=== PATIENT | female | born 1965 | race Caucasian/White ===

== ENCOUNTER 2019-04-24 09:09 | Emergency (ER) | payer OTHER, SELFPAY ==
[2019-04-24 09:10] VITALS: BP 132/81; PULSE 92; RESP 18; TEMP 36.6; O2SAT 98; BMI 18.4
[2019-04-24 09:32] LABS: UTC Influenza A Antigen Negative (Negative); UTC Influenza B Antigen Negative (Negative)
--- NOTE | 2019-04-24 09:37 | HMH.EDUTC ---
[facility] [place] Disposition Clinical Impression: Bronchitis Disposition: Home, Self-Care Condition on Discharge: Good Instructions: Acute Bronchitis, Acute Bronchitis (Alternative Therapy), DI for Acute Bronchitis, Sore Throat Additional Instructions: ? Start antibiotic today. Be sure to complete entire prescription even if feeling better ? Monitor temp. Tylenol every 4 hours as needed and / or ibuprofen every 6 hours as needed ( As long as your primary care physician has told you that it ok to take both. For fever/aches/pains ER if no less than 101 despite Tylenol or Motrin ? Humidifier/vaporizer or hot steamy shower ? Inhaler every 4-6 hours as needed like we discussed. If unsure how to use it, ask pharmacist to demonstrate how. Should help open airways and improve cough, wheezing, and shortness of breath ? Mucinex during the day for your cough and cough suppressant only at night. Be sure to drink lots of water. Insurance may not cover a prescriptions for mucinex. Might be cheaper to get 400mg tablets and take 2 tablet in the morning, mid-day and evening with lots of water. *Start steroid today. Helps with inflammation therefore, cough and wheezing. Follow directions on the package. Reviewed side effects. Patient reports taking them before. Follow up IMMEDIATELY for new or worsening of symptoms OR no noticeable improvement over the next 48-72 hours. 911 immediately for any life threatening symptoms such as chest pain or difficulty breathing Prescriptions: Albuterol Sulfate [Albuterol HFA Inhaler] 1 - 2 puffs IH Q4-6H PRN #1 inh PRN Reason: Shortness Of Breath Or Wheezing Transmission Status: Pending to [facility] methylPREDNISolone [Medrol 4mg tab] 4 mg PO DIRECTED #21 tab Transmission Status: Pending to [facility] Azithromycin [Z-Marcin 250mg Tab*] 250 mg PO UD DOSE PK #6 tab Transmission Status: Pending to [facility] Referrals: Nasir Ernandez [Primary Care Provider] - As needed Time of Disposition: 09:44 Medical Decision Making - Frankie Inquiry Pt receiving controlled substance: No Frankie was queried for this patient: No Vital Signs: 04/24/19 09:10 Temperature 97.8 F Temperature Source Oral Pulse Rate [Right] 92 H Respiratory Rate 18 Blood Pressure [Right Arm] 132/81 Blood Pressure Mean [Right Arm] 98 02 Sat by Pulse Oximetry 98 - Lab Data Lab results reviewed: Yes: I reviewed the patient's lab results. Lab Results 04/24/19 09:29: Influenza Type A Ag Negative, Influenza Type B Ag Negative [facility] [place] HPI - General Stated complaint: Flu like symptoms Time Seen by Provider: 04/24/19 09:37 Mode of Arrival: Ambulatory Limitations: No Limitations Description of Symptoms (Recalled from Triage Doc. by RN): C/O cough, chest congestion, body aches x5 days. HEENT Symptoms (Recalled from RN notes): Yes Resp Symptoms (Recalled from RN notes): Yes Skin Symptoms (Recalled from RN notes): No MS Symptoms (Recalled from RN notes): No Functional Status (Recalled from RN notes): na - History of Present Illness Provider Complaint: Patient states that she has been having flu like symptoms States that she has been having cough, congestion, sore throat and body aches. States that she has continued to get worse and thinks she had the flu - Related Data Previous Rx's Medication Instructions Recorded Ibuprofen [Ibuprofen 600mg 600 mg PO Q6HP PRN #30 tab 08/26/18 Tablet] Albuterol Sulfate [Albuterol HFA 1 - 2 puffs IH Q4-6H PRN #1 inh 04/24/19 Inhaler] Azithromycin [Z-Marcin 250mg Tab*] 250 mg PO UD DOSE PK #6 tab 04/24/19 methylPREDNISolone [Medrol 4mg 4 mg PO DIRECTED #21 tab 04/24/19 tab] Allergies Allergy/AdvReac Type Severity Reaction Status Date / Time No Known Allergies Allergy Verified 08/26/18 19:08 - Worker's Comp Is this a Worker's Comp case?: No [facility] History - Hepatitis A Screen Drug use history?: No High risk sexual behaviors?: No Histo
[2019-04-24 09:54] VITALS: BP 120/78; PULSE 87; RESP 18; TEMP 36.8; O2SAT 98
== END 2019-04-24 09:54 | disposition home or self-care (01) ==
PROVIDERS: Emergency Provider Nurse Practitioner; PCP Family Medicine
DX: J40 Bronchitis, not specified as acute or chronic (principal); Z90.49 Acquired absence of other specified parts of digestive tract; Z72.0 Tobacco use
CPT/HCPCS: 87804; 99201

== ENCOUNTER → 2021-06-03 10:35 | Outpatient (CLI) | payer MEDICAID, SELFPAY ==
[2021-06-04 10:46] LABS: Covid-19 Nasal PCR Sendout Lex POSITIVE
== END ==
PROVIDERS: Visit Provider Nurse Practitioner
DX: U07.1 COVID-19 (principal)
CPT/HCPCS: C9803; U0004; U0005

== ENCOUNTER 2021-06-08 15:45 | Emergency (ER) | payer MEDICAID, SELFPAY ==
[2021-06-08 15:47] VITALS: BP 185/99; PULSE 78; RESP 16; TEMP 36.5; O2SAT 98; BMI 19.3
--- NOTE | 2021-06-08 16:01 | XR_ITS ---
PROCEDURE INFORMATION: Exam: XR Chest Exam date and time: 06/08/2021 4:01 PM Age: 56 years old Clinical indication: Smoker's cough; Additional info: Cough - covid + 06/03/2021 TECHNIQUE: Imaging protocol: XR of the chest. Views: 2 views. COMPARISON: No relevant prior studies available. FINDINGS: Lungs: The lungs are hyperinflated, consistent with underlying small airways disease. No focal pneumonia or pneumothorax. Pleural spaces: See Lungs finding. Heart/Mediastinum: Unremarkable. No cardiomegaly. Bones/joints: Unremarkable. IMPRESSION: 1. The lungs are hyperinflated, consistent with underlying small airways disease. 2. No focal pneumonia or pneumothorax.
--- NOTE | 2021-06-08 16:22 | HMH.EDUTC ---
[facility] [place] Clinical Impression: COVID-19 Disposition: Home, Self-Care Condition on Discharge: Good Instructions: How to Use a Metered-Dose Inhaler, Chronic Obstructive Pulmonary Disease, DI for Chronic Obstructive Pulmonary Disease, How to Quit Tobacco Products, DI for COVID-19 (Suspected or Confirmed ), Preventing the Spread of Coronavirus Discharge Instructions Additional Instructions: Drink plenty of fluids. Take tylenol or ibuprofen for pain or fever. Take the medications as directed. Follow up with your regular doctor. GO TO THE ER FOR ANY WORSENING SYMPTOMS Quarantine until you know the results of your covid-19 test. Notify your school or workplace of your results and follow their instructions regarding return to work/school. The cough medication (promethazine dm) will make you drowsy, so don't drive or operate heavy machinery after taking it. Prescriptions: Albuterol Sulfate [Albuterol Sulfate Hfa] 2 puffs IH Q6HP PRN 30 Days #1 each PRN Reason: Shortness Of Breath Transmission Status: Received by [facility] Promethazine/Dextromethorphan [Promethazine-Dm Syrup] 5 ml PO Q6HP PRN #240 ml PRN Reason: Cough Transmission Status: Received by [facility] dexAMETHasone [Decadron] 6 mg PO DAILY 6 Days #6 tab Transmission Status: Received by [facility] guaiFENesin [Mucinex 600mg tablet] 1 - 2 tab PO BIDP PRN #30 tab PRN Reason: Congestion Transmission Status: Received by [facility] Azithromycin [Z-Marcin 250mg Tab*] 250 mg PO UD DOSE PK #6 tab Transmission Status: Received by [facility] Referrals: Provider,Referral, [Primary Care Provider] - Time of Disposition: 17:05 Medical Decision Making - Medical Records Medical records reviewed: No: I reviewed the patient's medical records. - Frankie Inquiry Pt receiving controlled substance: No Vital Signs: 06/08/21 15:47 06/08/21 17:08 Temperature 97.7 F 97.7 F Temperature Source Oral Pulse Rate 78 Pulse Rate [Radial] 78 Respiratory Rate 16 16 Blood Pressure 185/99 H Blood Pressure [Right Arm] 185/99 H Blood Pressure Mean [Right Arm] 127 Blood Pressure Position [Right Arm] Sitting 02 Sat by Pulse Oximetry 98 Oxygen Delivery Method Room Air - Radiology Data #1 Image(s): Chest Image Reviewed: Yes I reviewed the patient's radiology image, Yes I have reviewed radiologist's interpretation Preliminary Findings: Normal/NAD, No Infiltrates Seen PROCEDURE INFORMATION: Exam: XR Chest Exam date and time: 06/08/2021 4:01 PM Age: 56 years old Clinical indication: Smoker's cough; Additional info: Cough - covid + 06/03/2021 TECHNIQUE: Imaging protocol: XR of the chest. Views: 2 views. COMPARISON: No relevant prior studies available. FINDINGS: Lungs: The lungs are hyperinflated, consistent with underlying small airways disease. No focal pneumonia or pneumothorax. Pleural spaces: See Lungs finding. Heart/Mediastinum: Unremarkable. No cardiomegaly. Bones/joints: Unremarkable. IMPRESSION: 1. The lungs are hyperinflated, consistent with underlying small airways disease. 2. No focal pneumonia or pneumothorax. [facility] [place] - General Stated complaint: covid+. weakness, chest congestion Time Seen by Provider: 06/08/21 16:22 Mode of Arrival: Ambulatory Source of Information: Patient Limitations: No Limitations Description of Symptoms (Recalled from Triage Doc. by RN): PT STATES SHE TESTED + FOR COVID THURSDAY, TODAY TOOK SOME MUCINEX FOR CONGESTION APPROX 2PM NOW FEELS SHAKEY AND HEART RACING. PT DENIES ANY CHEST PAIN, SOB, NAUSEA, VOMITING, FEVER, CHILLS. RADIAL PULSE STRONG REG AT 78. - History of Present Illness Provider Complaint: She has felt bad for the past 5 days. She has tested positive for covid-19 already. She states that she has been doing fine, but today she has had dejuan
[2021-06-08 17:08] VITALS: BP 185/99; PULSE 78; RESP 16; TEMP 36.5
== END 2021-06-08 17:27 | disposition home or self-care (01) ==
LOC: ER 15:57 → UTC 15:59
PROVIDERS: Emergency Provider Nurse Practitioner Family
DX: U07.1 COVID-19 (principal); R05.1 Acute cough; F17.210 Nicotine dependence, cigarettes, uncomplicated
CPT/HCPCS: 71046; 99202; G0463

== ENCOUNTER 2021-06-15 11:36 | Emergency (ER) | payer MEDICAID, SELFPAY ==
[2021-06-15 11:40] VITALS: BP 138/86; PULSE 78; RESP 18; TEMP 36.6; O2SAT 98; BMI 21.4
--- NOTE | 2021-06-15 11:44 | XR_ITS ---
PROCEDURE INFORMATION: Exam: XR Left Wrist Exam date and time: 06/15/2021 11:44 AM Age: 56 years old Clinical indication: Wrist; Left; Patient HX: Pain and swelling TECHNIQUE: Imaging protocol: XR Left wrist. Views: 3 or more views. COMPARISON: No relevant prior studies available. FINDINGS: Bones/joints: Moderate osteoarthritic changes of the thumb base and STT complex. There is a cyst/cystic lesion within the scaphoid bone measuring approximately 8 x 5 mm. Carpal alignment maintained. No evidence of an acute fracture or dislocation. Soft tissues: Soft tissue swelling. IMPRESSION: 1. 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 2. There is a cyst/cystic lesion within the scaphoid bone measuring approximately 8 x 5 mm. 3. No evidence of an acute fracture or dislocation.
--- NOTE | 2021-06-15 12:11 | HMH.EDUTC ---
[facility] [place] Disposition Clinical Impression: Cyst Gout Qualifiers: Gout site: wrist Gout etiology: unspecified cause Chronicity: acute Laterality: left Qualified Code(s): M10.9 - Gout, unspecified Disposition: Home, Self-Care Condition on Discharge: Good Instructions: DI for Gout, Ganglion Cyst Additional Instructions: rest Ice with cold pack for 20 minutes remove may repeat for comfort every hour aurea wrap for support and swelling no less in the shower. Be sure not too tight but not to lose either Elevate with arm above your heart as much as possible to help reduce swelling and therefore pain Ibuprofen every 6 hours as needed for pain or inflammation. If needs something more you can take Tylenol every 4 hours as needed as long as her primary care has told he was okayed for you to take both. Follow-up immediately if new or worsening symptoms or no noticeable improvement over the next 3-5 days. call ortho Prescriptions: predniSONE [Prednisone 20mg Tab] 20 mg PO BID #10 tab Transmission Status: Pending to [facility] Referrals: Provider,Referral, [Primary Care Provider] - Time of Disposition: 12:36 Medical Decision Making - Frankie Inquiry Pt receiving controlled substance: No Vital Signs: 06/15/21 11:40 Temperature 97.8 F Temperature Source Oral Pulse Rate [Right Brachial] 78 Respiratory Rate 18 Blood Pressure [Right Arm] 138/86 Blood Pressure Mean [Right Arm] 103 Blood Pressure Source [Right Arm] Automatic Cuff Blood Pressure Position [Right Arm] Sitting 02 Sat by Pulse Oximetry 98 Oxygen Delivery Method Room Air Orders (Tests/Meds): ORDERS Category Date Time Status Uric Acid Stat Lab 06/15/21 12:15 Ordered [facility] [place] HPI - General Chief complaint: Urgent [facility] Stated complaint: left hand/wrist pain, no accident Time Seen by Provider: 06/15/21 12:16 Mode of Arrival: Ambulatory Source of Information: Patient Limitations: No Limitations Description of Symptoms (Recalled from Triage Doc. by RN): PATIENT C/O LEFT WRIST PAIN AND SWELLING SINCE THIS MORNING. NO KNOWN INJURY HEENT Symptoms (Recalled from RN notes): No Resp Symptoms (Recalled from RN notes): No Skin Symptoms (Recalled from RN notes): No MS Symptoms (Recalled from RN notes): Yes Functional Status (Recalled from RN notes): WNL - History of Present Illness Provider Complaint: 56 yr old female presents for left wrist and hand pain with swelling. pt states no injury. pt states she woke up this am with swelling and pain. - Related Data Previous Rx's Medication Instructions Recorded predniSONE [Prednisone 20mg 20 mg PO BID #10 tab 06/15/21 Tab] Allergies Allergy/AdvReac Type Severity Reaction Status Date / Time No Known Allergies Allergy Verified 08/26/18 19:08 - Worker's Comp Is this a Worker's Comp case?: No [facility] History - Hepatitis A Screen Drug use history?: No High risk sexual behaviors?: No History of sexually transmitted infection?: No Currently employed?: No Childcare worker?: No Do you have indoor plumbing?: Yes Do you have electricity?: Yes Attestation statement:: This patient has been screened for Hepatitis A risk factors. I have reviewed the patient's past medical history: Yes Other Surgeries: Yes: Appendectomy Comment: Multiple Pancreatic Surgeries - Social History Smoking Status: Current every day smoker Tobacco Type: cigarettes # Packs/Day (cigarettes): 40 Alcohol Intake: never Substance Use Type: denies use Occupational Status: other Family Hx:: Heart Attack, Hypertension ROS Obtained: Yes Systems reviewed as appropriate & no additional complaints - Constitutional Constitutional: Reports system reviewed and no additional complaints, except as docu, Denies fever(s) - Eyes Eyes: Reports system reviewed and no additional complaints, except as docu, Denies dry eyes - ENT Ears, Nose, Mouth, and Throat: Reports system reviewed and no additional complaints,
[2021-06-15 12:41] VITALS: BP 138/86; PULSE 78; RESP 18; TEMP 36.6; O2SAT 98
== END 2021-06-15 12:47 | disposition home or self-care (01) ==
PROVIDERS: Emergency Provider Nurse Practitioner Family
DX: M10.042 Idiopathic gout, left hand (principal)
CPT/HCPCS: 73110; 84550; 99202; 99212; 99213; G0463

== ENCOUNTER 2021-07-11 10:59 | Outpatient (RCR) | payer MEDICAID, SELFPAY | END 2021-07-11 11:35 | disposition home or self-care (01) | LOC: OT 10:59 | PROVIDERS: Visit Provider Orthopaedic Surgery | DX: M18.12 Unilateral primary osteoarthritis of first carpometacarpal joint, left hand (principal) ==

== ENCOUNTER 2021-08-15 08:33 | Observation (INO) | payer MEDICAID, SELFPAY ==
[2021-08-15] VITALS (17 sets, daily range): BP systolic 155–219; BP diastolic 81–108; PULSE 41–85; RESP 16–20; TEMP 35.4–36.8; O2SAT 93–100; BMI 18.0; BMI 16.7
--- NOTE | 2021-08-15 08:35 | PC.NURSE ---
patient ambulatory to restroom without complications; patient is holding her abdomen while walking
--- NOTE | 2021-08-15 08:41 | PC.NURSE ---
patient back from restroom without complications; she was unable to void at this time
--- NOTE | 2021-08-15 08:41 | PC.NURSE ---
QING SOTO at BS; DARREL Pang at BS
--- NOTE | 2021-08-15 08:43 | HMH.EDGENADL ---
ED Disposition Clinical Impression: Splenic infarct Disposition: Admitted as Observation Condition on Discharge: Good Referrals: Provider,Referral, [Primary Care Provider] - - Critical Care Critical Care Time: No Attestation: On 08/15/21, the high probability of a clinically significant, sudden or life threatening deterioration of the following system(s) required my full and direct attention, intervention and personal management. The time I documented below is in addition to time spent performing reported procedures but includes the following listed in this critical care notation. Medical Decision Making - Medical Records Medical records reviewed: Yes: I reviewed the patient's medical records. - Frankie Inquiry Pt receiving controlled substance: No Vital Signs: 08/15/21 08:46 08/15/21 09:00 08/15/21 09:33 Temperature 98.2 F Temperature Source Oral Pulse Rate 61 60 Pulse Rate [Left Radial] 65 Respiratory Rate 18 Blood Pressure 219/99 H 177/106 H Blood Pressure [Right Arm] 162/108 H Blood Pressure Mean [Right Arm] 126 Blood Pressure Source Automatic Cuff Automatic Cuff Blood Pressure Position Sitting Sitting 02 Sat by Pulse Oximetry 98 98 93 L Oxygen Delivery Method Room Air Room Air Room Air 08/15/21 10:00 08/15/21 11:00 08/15/21 11:37 Temperature Temperature Source Pulse Rate 55 L 55 L 58 L Pulse Rate [Left Radial] Respiratory Rate Blood Pressure 165/87 H 171/86 H 184/83 H Blood Pressure [Right Arm] Blood Pressure Mean [Right Arm] Blood Pressure Source Automatic Cuff Automatic Cuff Automatic Cuff Blood Pressure Position Sitting Sitting Sitting 02 Sat by Pulse Oximetry 94 L 96 99 Oxygen Delivery Method Room Air Room Air Room Air - Lab Data Lab Results 08/15/21 09:22: WBC 8.6, RBC 4.89, Hgb 15.3, Hct 48.1 H, MCV 98.2, MCH 31.3 H, MCHC 31.9, RDW 13.6, Plt Count 327, MPV 9.0, Neut % (Auto) 71.7, Lymph % (Auto) 19.4, Crenshaw % (Auto) 4.9, Eos % (Auto) 1.4, Baso % (Auto) 2.8 H, Neut # (Auto) 6.1, Lymph # (Auto) 1.7, Crenshaw # (Auto) 0.4, Eos # (Auto) 0.1, Baso # (Auto) 0.2 08/15/21 09:22: Sodium 135 L, Potassium 3.8, Chloride 103, Carbon Dioxide 28, Anion Gap 7.8, BUN 12, Creatinine 0.70, Estimated Creat Clear 73, Estimated GFR 86, Est GFR ( Amer) 104, Glucose 94, Calcium 8.2 L, Total Bilirubin 0.7, AST 24, ALT 13, Alkaline Phosphatase 94, Total Protein 6.5, Albumin 4.0, Globulin 2.5, Albumin/Globulin Ratio 1.6 08/15/21 09:22: Lipase 108 08/15/21 09:22: PT 10.4, INR 0.91, APTT 25.9 08/15/21 09:22: Troponin I < 0.01 Result diagrams: 08/15/21 09:22 08/15/21 09:22 Orders (Tests/Meds): ED MEDICATIONS Generic Name Dose Route Start Last Admin Trade Name Freq PRN Reason Stop Dose Admin Acetaminophen 650 mg 08/15/21 12:15 Acetaminophen 325mg Tab PO 09/14/21 12:14 Q4HP PRN Fever or Mild Pain Lactated Ringer's 1,000 mls @ 125 mls/hr 08/15/21 11:45 08/15/21 12:01 Lactated Ringer's 1000 Ml Bag IV 09/14/21 11:44 125 mls/hr .Q8H CONNOR Administration Morphine Sulfate 4 mg 08/15/21 12:15 Morphine 4mg/Ml Syringe IV 09/14/21 12:14 Q4HP PRN Severe Pain Ondansetron HCl 4 mg 08/15/21 12:15 Ondansetron 4mg/2ml Vial IV 09/14/21 12:14 Q8HP PRN Nausea Discontinued Medications Generic Name Dose Route Start Last Admin Trade Name Freq PRN Reason Stop Dose Admin Hydromorphone HCl 0.5 mg 08/15/21 08:39 Hydromorphone 2mg/Ml Syringe IV 08/15/21 08:40 ONCE ONE Lactated Ringer's 1,000 mls @ 999 mls/hr 08/15/21 08:45 08/15/21 09:27 Lactated Ringer's 1000 Ml Bag IV 08/15/21 09:45 999 mls/hr .Q1H1M CONNOR Administration Iopamidol 75 ml 08/15/21 10:38 08/15/21 10:39 Iopamidol-370 (76%);100ml Bottle IV 08/15/21 10:39 75 ml ONCE ONE Administration Morphine Sulfate 4 mg 08/15/21 08:44 08/15/21 09:27 Morphine 4mg/Ml Syringe IV 08/15/21 08:45 4 mg ONCE ONE Administration Morphin
--- NOTE | 2021-08-15 09:02 | PC.NURSE ---
Call light within reach, patient given a blanket and has no other needs at this time
[2021-08-15 09:41] LABS: Chloride 103 mmol/L (98-107)
[2021-08-15 09:42] LABS: Potassium 3.8 mmoL/L (3.5-5.1); Sodium 135 mmol/L (136-145)
[2021-08-15 09:44] LABS: Alanine Aminotransferase 13 U/L (12-78); Albumin/Globulin Ratio 1.6 (1.1-1.8); Alkaline Phosphatase 94 U/L (38-126); Anion Gap 7.8 mEq/L (5-15); Aspartate Amino Transferase 24 U/L (14-36); Basophils # 0.2 K/mm3 (0-0.2); Basophils % 2.8 % (0.1-2.0); Bilirubin,Total 0.7 mg/dl (0.2-1.3); Blood Urea Nitrogen 12 mg/dl (7-17); Carbon Dioxide 28 mmol/L (22.0-30.0); Creatinine Clearance Estimated 73 mL/min (50-200); Eosinophils # 0.1 K/mm3 (0.0-0.4); Eosinophils % 1.4 % (0.1-12.0); Estimated Glomerular Filt Rate 86 ml/min (>60); GFR (African American) 104 ML/MIN (>60); Globulin 2.5 g/dL (1.3-3.2); Hematocrit 48.1 % (37.0-47.0); Hemoglobin 15.3 g/dL (12.2-16.2); Lymphocytes # 1.7 K/mm3 (0.7-4.5); Lymphocytes % 19.4 % (10-50); Mean Corpuscular HGB Conc 31.9 g/dL (31.8-35.4); Mean Corpuscular Hemoglobin 31.3 pg (27.0-31.2); Mean Corpuscular Volume 98.2 fl (81-99); Monocytes # 0.4 K/mm3 (0.1-1.0); Monocytes % 4.9 % (1.7-9.3); Neutrophils # 6.1 K/mm3 (1.8-7.8); Neutrophils % 71.7 % (37.0-80.0); Platelet Count 327 K/mm3 (142-424); Red Blood Count 4.89 M/mm3 (4.20-5.40); Red Cell Distribution Width 13.6 % (11.5-17.5); Total Protein,Serum 6.5 g/dl (6.3-8.2); White Blood Count 8.6 K/mm3 (4.8-10.8)
[2021-08-15 09:45] LABS: Calcium 8.2 mg/dl (8.4-10.2); Glucose 94 mg/dl (74-100); Lipase 108 U/L (23-300)
--- NOTE | 2021-08-15 09:49 | CT_ITS ---
FINAL REPORT CLINICAL HISTORY: epigastric abd pain, h/o pancreatitis FINDINGS: CT OF THE ABDOMEN AND PELVIS WITH CONTRAST Axial CT images of the abdomen and pelvis were obtained after the administration of intravenous contrast. Coronal reformatted images were also obtained and reviewed.This study was performed with techniques to keep radiation doses as low as reasonably achievable (ALARA). Individualized dose reduction techniques using automated exposure control or adjustment of mA and/or kV according to the patient's size were employed. Abdomen: There is scarring in the lung bases. The heart is normal in size. The liver has an unremarkable appearance, without evidence of mass or biliary ductal dilatation. There is mild nonspecific gallbladder wall thickening. There are multiple peripheral areas of low attenuation in the spleen that do not have the typical appearance of contrast mixing in the recent 4 multiple infarcts. No adrenal mass is present. There is mild pancreatic duct dilatation up to 4 mm which is nonspecific. The kidneys are normal, without evidence of mass or hydronephrosis. The aorta is normal in caliber. There is no free fluid or adenopathy. No mass or abnormal fluid collection is seen. Pelvis: The appendix is not identified. The urinary bladder is unremarkable. No inflammatory process is seen. There is no evidence of mass or adenopathy. There is no evidence of bowel obstruction. There is a prominent left pelvic vein of uncertain significance. IMPRESSION: Peripheral low attenuation areas in the spleen worrisome for multiple infarcts. Follow-up with delayed imaging through the spleen may be helpful. Reviewed, Interpreted and Dictated by Geo Gutierrez III, MD Transcribed by Feroz Addison Authenticated by Geo Gutierrez III, MD on 08/15/2021 11:15:27 AM [facility]
--- NOTE | 2021-08-15 11:05 | PC.NURSE ---
Waiting on CT results; patient is resting with no needs at this time
--- NOTE | 2021-08-15 11:29 | XR_ITS ---
FINAL REPORT CLINICAL HISTORY: epigastric pain COMPARISON: 06/08/2021 FINDINGS: A single view of the chest was obtained. The heart is normal in size. The mediastinum is unremarkable. There is mild scarring/fibrosis. There is no active disease. There is no pleural effusion. There is no pneumothorax. There is no acute osseous abnormality. IMPRESSION: No acute cardiopulmonary process. Reviewed, Interpreted and Dictated by Geo Gutierrez III, MD Transcribed by Monet Garcia Authenticated by Geo Gutierrez III, MD on 08/15/2021 01:01:02 PM [facility]
--- NOTE | 2021-08-15 11:35 | ECG_ITS ---
APPROVED REPORT Exam: Resting ECG HR:46 bpm ECG Measurements Heart Rate 46 AXES VT 140 P 84 QRSd 93 QRS 87 QT 425 T 85 QTc 384 Conclusion ELECTRONIC ATRIAL PACEMAKER POSSIBLE RIGHT VENTRICULAR CONDUCTION DELAY [RSR (QR) IN V1/V2] ABNORMAL RHYTHM ECG UNCONFIRMED REPORT Electronically signed by : Barrett De Leon MD 08/17/2021 12:21:00
[2021-08-15 12:00] LABS: Activated Partial Thrombo Time 25.9 seconds (22.8-30.6); INR 0.91 (0.9-1.1); Prothrombin Time 10.4 seconds (10.1-12.5)
--- NOTE | 2021-08-15 12:01 | INFXCTL.NOTE ---
QING SOTO on phone with Dr. Blackman
[2021-08-15 12:07] LABS: Troponin I < 0.01 ng/ml (0.00-0.034)
--- NOTE | 2021-08-15 12:11 | SUR.OPER ---
ED MD at for update on POC
--- NOTE | 2021-08-15 12:14 | PC.NURSE ---
ED speaking with Dr Wang
[2021-08-15 12:24] LABS: Amylase 100 U/L (30-110)
--- NOTE | 2021-08-15 12:30 | HMH.PHAINT ---
MEDICATION RECONCILIATION COMPLETED ON PATIENT USING EXTERNAL FILL HISTORY FROM PHARMACY. -SHANTEL ROQUE, AMYD
[2021-08-15 12:40] LABS: Lactic Acid 0.9 mmol/L (0.7-2.1)
--- NOTE | 2021-08-15 12:40 | PC.NURSE ---
1234 bed assignment requested. room 211 all staff notified
--- NOTE | 2021-08-15 12:42 | HMH.HP ---
*Admission Date: 08/15/21 <Arti Gonzalez 08/15/21 12:48> *Chief complaint: epigastric abdominal pain <Chino Gonzaleza 08/15/21 12:48> *History of present illness: Ms. Anderson is a 56-year-old female who is relatively healthy other than an episode of pancreatitis approximately 16 years ago. She began having severe epigastric pain last night and presented to the emergency room for evaluation. Her abdominal and pelvic CT showed peripheral low-attenuation areas in the spleen worrisome for multiple infarcts. She will be admitted with plans for anticoagulation and observation. <Arti Gonzalez 08/15/21 12:48> [facility] History I have reviewed the patient's past medical history: Yes <Arti Gonzalez 08/15/21 12:48> *Have you ever received a pneumonia vaccine?: Yes <Arti Gonzalez 08/15/21 12:48> *Have you received a flu vaccine this season?: Yes <Arti Gonzalez 08/15/21 12:48> Other Medical History: Reports: Other (Pancreatitis) <Arti Gonzalez 08/15/21 12:48> Other Surgeries: Yes: Appendectomy, Tubal Ligation <Arti Gonzalez 08/15/21 12:48> Comment: Pancreatic stents <Chino Gonzaleza 08/15/21 12:48> - *Social History Smoking Status: Current every day smoker <Arti Gonzalez 08/15/21 12:48> Tobacco Type: cigarettes <Arti Gonzalez 08/15/21 12:48> # Packs/Day (cigarettes): 40 <Arti Gonzalez 08/15/21 12:48> Alcohol Intake: never <Arti Gonzalez 08/15/21 12:48> Substance Use Type: denies use <Arti Gonzalez 08/15/21 12:48> *Occupational Status:: other <Arti Gonzalez 08/15/21 12:48> *Travel in the last 8 weeks: None <Arti Gonzalez 08/15/21 12:48> Family Hx:: Heart Attack, Hypertension <Arti Gonzalez 08/15/21 12:48> Review of Systems - Constitutional Denies fever(s) <Arti Gonzalez 08/15/21 12:48> - Eyes Denies blurry vision, Denies double vision <Arti Gonzalez 08/15/21 12:48> - ENT Reports nasal congestion, Denies sore throat <Arti Gonzalez 08/15/21 12:48> - *Cardiovascular Denies chest pain, Denies shortness of breath <Arti Gonzalez 08/15/21 12:48> - *Respiratory Denies cough, Denies shortness of breath <Arti Gonzalez 08/15/21 12:48> - *Gastrointestinal Reports abdominal pain (Epigastric), Reports nausea, Reports vomiting, Denies loose stools <Arti Gonzalez 08/15/21 12:48> - *Genitourinary Denies difficulty urinating, Denies painful urination <Arti Gonzalez 08/15/21 12:48> - *Musculoskeletal Denies joint pain <Arti Gonzalez 08/15/21 12:48> - *Neurologic Denies headache(s), Denies dizziness, Denies weakness <Arti Gonzalez 08/15/21 12:48> Meds Home Medications Medication Instructions Recorded Confirmed Type No Known Home Medications 08/15/21 08/15/21 History <Stuart Wang - 08/15/21 18:33> Allergies Allergy/AdvReac Type Severity Reaction Status Date / Time No Known Allergies Allergy Verified 07/11/21 10:23 <Stuart Wang - 08/15/21 18:33> Exam Vital signs and Labs for Last 24 Hours: Temp Pulse Resp BP Pulse Ox 95.7 F L 41 L 18 190/98 H 95 08/15/21 16:00 08/15/21 16:15 08/15/21 16:00 08/15/21 16:00 08/15/21 16:00 Laboratory Results - last 24 hr 08/15/21 09:22: WBC 8.6, RBC 4.89, Hgb 15.3, Hct 48.1 H, MCV 98.2, MCH 31.3 H, MCHC 31.9, RDW 13.6, Plt Count 327, MPV 9.0, Neut % (Auto) 71.7, Lymph % (Auto) 19.4, [place] % (Auto) 4.9, Eos % (Auto) 1.4, Baso % (Auto) 2.8 H, Neut # (Auto) 6.1, Lymph # (Auto) 1.7, [place] # (Auto) 0.4, Eos # (Auto) 0.1, Baso # (Auto) 0.2 08/15/21 09:22: Sodium 135 L, Potassium 3.8, Chloride 103, Carbon Dioxide 28, Anion Gap 7.8, BUN 12, Creatinine 0.70, Estimated Creat Clear 73, Estimated GFR 86, Est GFR ( Amer) 104, Glucose 94, Calcium 8.2 L, Total Bilirubin 0.7, AST 24, ALT 13, Alkaline Phosphatase 94, Total Protein 6.5, Albumin 4.0, Globulin 2.5, Albumin/Globulin Ratio 1.6 08/15/21 09:22: Lipase 108 08/15/21 09:22: PT 10.4, INR 0.91, APTT 25.9 08/15/21 09:22: Troponin I < 0.01 08/15/21
[2021-08-15 14:06] LABS: Microscopic, Urine URINE MICROSCOPIC (MICROSCOPIC)
[2021-08-15 14:10] LABS: Appearance,Urine CLEAR (Clear); Bilirubin,Urine Negative (Negative); Blood, Urine TRACE-I (Negative); Color,Urine YELLOW (Yellow); Glucose,Urine (UA) Negative (Negative); Ketones,Urine Negative (Negative); Leukocyte Esterase,Urine Negative (Negative); Nitrate,Urine Negative (Negative); Protein,Urine Negative (Negative); Specific Gravity, Urine <= 1.005 (1.005-1.030); Urobilinogen,Urine 0.2 EU/dl (0.2)
[2021-08-15 14:12] LABS: Coronavirus 19, PCR Not Detected (NotDetected); Influenza A, PCR Not Detected (NotDetected); Influenza B, PCR Not Detected (NotDetected)
[2021-08-15 14:33] LABS: RBC,Urine Occasional #/hpf (0-3); Squamous Epithelial Cell,Urine Occasional #/hpf (0-5)
--- NOTE | 2021-08-15 15:10 | P.CONPHA_ITS ---
[facility] Pharmacy VTE Monitoring - Patient Demographics Admission date: 08/15/21 Report Date: 08/15/21 Time: 15:11 Allergies/Adverse Reactions: Patient Allergies No Known Allergies Allergy (Verified 07/11/21 10:23) Height: 1.7 m Weight: 52.163 kg Patient Problems: Current Active Problems Splenic infarct (Acute) History of pancreatitis (Chronic) - VTE Risk Labs: VTE Related Lab Results Hgb 15.3 g/dL (12.2-16.2) 08/15/21 09:22 Hct 48.1 % (37.0-47.0) H 08/15/21 09:22 Plt Count 327 K/mm3 (142-424) 08/15/21 09:22 PT 10.4 seconds (10.1-12.5) 08/15/21 09:22 INR 0.91 (0.9-1.1) 08/15/21 09:22 APTT 25.9 seconds (22.8-30.6) 08/15/21 09: BUN 12 mg/dl (7-17) 08/15/21 09:22 Creatinine 0.70 mg/dl (0.52-1.04) 08/15/21 09:22 Estimated Creat Clear 73 mL/min (50-200) 08/15/21 09:22 Clinical Trial Participant: No - Prophylaxis VTE Prophylaxis Ordered?: Yes Types of VTE Prophylaxis: TEDS Knee High, Pharmacological Pharmacologic Type: Enoxaparin
--- NOTE | 2021-08-15 15:14 | US_ITS ---
FINAL REPORT CLINICAL HISTORY: abd pain COMPARISON: CT from the same day FINDINGS: Sonographic images of the right upper quadrant were obtained. The pancreas is partially obscured. There is a 2.2 x 1.4 x 1.3 cm hyperechoic nonspecific focus in the right lobe of the liver that may represent a hemangioma. This was not well demonstrated on the CT from the same day. The gallbladder appears normal without evidence of gallstones. There is a trace amount of sludge in the gallbladder.There is no evidence of biliary ductal dilatation.The common duct measures 2 mm. There is a extrarenal right renal pelvis. IMPRESSION: Nonspecific hyperechoic focus in the liver may represent a hemangioma. Trace amount of sludge in the gallbladder. Reviewed, Interpreted and Dictated by Geo Gutierrez III, MD Transcribed by Feroz Addison Authenticated by Geo Gutierrez III, MD on 08/15/2021 04:58:29 PM [facility]
[2021-08-15 15:28] LABS: Troponin I < 0.01 ng/ml (0.00-0.034)
--- NOTE | 2021-08-15 16:59 | PC.NURSE ---
called md office and relayed patient was vomiting and having nausea. stated could order promethazine 12.5mg [id number] for nausea. when going to give it noted patient starting to get drowsy. heart rate in 40s and bp 190/98. rectal temp 95.7. holding on promethazine at this time. paged md to relay vitals. new iv placed 20 in l forearm
--- NOTE | 2021-08-15 18:38 | PC.NURSE ---
spoke with md about patient heart rate, blood pressure and body temp. placing orders for amlodipine, and md decreased morphine and stopped promethazine
[2021-08-15 18:43] LABS: Troponin I < 0.01 ng/ml (0.00-0.034)
[2021-08-16] VITALS (9 sets, daily range): BP systolic 132–185; BP diastolic 74–89; PULSE 50–62; RESP 16–20; TEMP 36.4–36.7; O2SAT 93–96; BMI 17.7
--- NOTE | 2021-08-16 03:59 | PC.NURSE ---
NO ACUTE CHANGES FROM PREVIOUS ASSESSMENT. PT HAS RESTED WELL WITH PRN PAIN MEDICATION. VITAL SIGNS REMAIN STABLE, WILL CONTINUE TO MONITOR.
[2021-08-16 06:59] LABS: Chloride 103 mmol/L (98-107); Potassium 4.2 mmoL/L (3.5-5.1); Sodium 137 mmol/L (136-145)
[2021-08-16 07:02] LABS: Alanine Aminotransferase 14 U/L (12-78); Albumin Level 3.9 g/dl (3.5-5.0); Albumin/Globulin Ratio 1.6 (1.1-1.8); Alkaline Phosphatase 76 U/L (38-126); Anion Gap 8.2 mEq/L (5-15); Aspartate Amino Transferase 24 U/L (14-36); Bilirubin,Total 0.9 mg/dl (0.2-1.3); Blood Urea Nitrogen 6 mg/dl (7-17); Carbon Dioxide 30 mmol/L (22.0-30.0); Creatinine Clearance Estimated 72 mL/min (50-200); Estimated Glomerular Filt Rate 86 ml/min (>60); GFR (African American) 104 ML/MIN (>60); Globulin 2.4 g/dL (1.3-3.2); Total Protein,Serum 6.3 g/dl (6.3-8.2)
[2021-08-16 07:03] LABS: Calcium 8.4 mg/dl (8.4-10.2); Glucose 93 mg/dl (74-100)
[2021-08-16 07:08] LABS: Basophils # 0.1 K/mm3 (0-0.2); Eosinophils # 0.1 K/mm3 (0.0-0.4); Eosinophils % 1.4 % (0.1-12.0); Hematocrit 44.8 % (37.0-47.0); Hemoglobin 14.6 g/dL (12.2-16.2); Lymphocytes # 1.7 K/mm3 (0.7-4.5); Lymphocytes % 26.4 % (10-50); Mean Corpuscular HGB Conc 32.6 g/dL (31.8-35.4); Mean Corpuscular Hemoglobin 31.9 pg (27.0-31.2); Mean Corpuscular Volume 97.9 fl (81-99); Mean Platelet Volume 8.4 fl (7.4-10.4); Monocytes # 0.4 K/mm3 (0.1-1.0); Monocytes % 5.8 % (1.7-9.3); Neutrophils # 4.2 K/mm3 (1.8-7.8); Neutrophils % 65.4 % (37.0-80.0); Platelet Count 303 K/mm3 (142-424); Red Blood Count 4.58 M/mm3 (4.20-5.40); Red Cell Distribution Width 13.7 % (11.5-17.5); White Blood Count 6.4 K/mm3 (4.8-10.8)
--- NOTE | 2021-08-16 08:00 | CA_ITS ---
APPROVED REPORT EXAM: Comprehensive 2D, Doppler, and color-flow Echocardiogram Landscape Drafter: Saranya Preciado CRT Ht: 5 ft 7 in Wt: 115lbs BSA: 1.60 BP: 184/83 mmHg Indications: Hypertension/HDD, smoker, r/o endocarditis, splenic infarct 2D Dimensions LVOT 1.65 cm (M/F) 1.5-2.5 LA Volume 35.30 mL LA Volume Index 22.10 mL/m2 (M/F) 16-34 M-Mode Dimensions RVDd 2.79 cm (0.9-2.6) LA Diam 2.90 cm (1.9-4.0) LVDd 4.24 cm (3.5-5.7) Ao Diam 3.97 cm (2.0-3.7) LVDs 3.01 cm (3.5-5.7) IVSd 1.10 cm (0.6-1.1) PWd 0.62 cm (0.6-1.1) EF (Teich) 56.10% FS 29.00% EDV (Teich) 80.40 mL TAPSE 1.59 (<1.7) ESV (Teich) 35.30 mL LV Diastology E Decel Time 190.00 (160-240 msec) E/A Ratio 1.20 MED E' 10.00 (< 7 cm/sec) MED A' 10.80 cm/s E'/MED E' Ratio 6.86 (>14) LAT E' 11.40 (<10 cm/sec) LAT A' 7.90 cm/s E/LAT E' Ratio 6.02 (>14) Aortic Valve AO Peak GR. 6.00 mmHg Mitral Valve MV A Velocity 57.00 (40-130 cm/s) E/A Ratio 1.20 MV Decel. Time 190.00 (160-240 ms) Pulmonary Valve PV Peak Velocity 94.00 (50-150 cm/s) Tricuspid Valve TR P. Velocity 302.00 cm/s RAP Estimate 10.00 mmHg RVSP 46.50 mmHg Left Ventricle Left atrium is qualitatively mildly enlarged, left ventricle is normal size, left ventricle wall thickness is upper limit of the normal, there is preserved left ventricular systolic function, estimated ejection fraction 55% with no regional wall motion abnormality, diastolic parameters appears to be normal range. Right Ventricle Right atrium and right ventricle are normal size and contractility. Aortic Valve Aortic valve is grossly normal, there is no aortic stenosis or aortic insufficiency. Mitral Valve Mitral valve is grossly normal, there is trace mitral regurgitation. Tricuspid Valve Tricuspid valve grossly normal, there is trace tricuspid regurgitation, tricuspid regurgitation jet velocity is inadequate for calculation of the right ventricular systolic pressure. Pulmonic Valve Pulmonic valve is poorly visualized. Great Vessels Aortic root is normal size. Inferior vena cava is normal size with normal inspiratory collapse. Pericardium No significant pericardial effusion noted. Conclusion 1. Normal left ventricular size preserved left ventricular systolic function, estimated ejection fraction 55% with no regional wall motion abnormality, diastolic parameters are within normal range. 2. Trace mitral and tricuspid regurgitation. 3. No significant pericardial effusion. 4. Inferior vena cava is normal size with normal inspiratory collapse and 5. No obvious valvular vegetation identified. Electronically signed by : Satinder Echeverria MD 08/16/2021 12:46:31
--- NOTE | 2021-08-16 08:18 | HMH.ACPN2 ---
Internal Medicine - PN: Subj *Date: 08/16/21 *Time: 08:18 Interval history: Patient feels a little better this morning. Exam Vital signs and Labs for Last 24 Hours: Temp Pulse Resp BP Pulse Ox 98.0 F 62 18 132/84 93 L 08/16/21 04:39 08/16/21 04:39 08/16/21 04:39 08/16/21 04:39 08/16/21 04:39 Laboratory Results - last 24 hr 08/15/21 09:22: WBC 8.6, RBC 4.89, Hgb 15.3, Hct 48.1 H, MCV 98.2, MCH 31.3 H, MCHC 31.9, RDW 13.6, Plt Count 327, MPV 9.0, Neut % (Auto) 71.7, Lymph % (Auto) 19.4, [place] % (Auto) 4.9, Eos % (Auto) 1.4, Baso % (Auto) 2.8 H, Neut # (Auto) 6.1, Lymph # (Auto) 1.7, [place] # (Auto) 0.4, Eos # (Auto) 0.1, Baso # (Auto) 0.2 08/15/21 09:22: Sodium 135 L, Potassium 3.8, Chloride 103, Carbon Dioxide 28, Anion Gap 7.8, BUN 12, Creatinine 0.70, Estimated Creat Clear 73, Estimated GFR 86, Est GFR ( Amer) 104, Glucose 94, Calcium 8.2 L, Total Bilirubin 0.7, AST 24, ALT 13, Alkaline Phosphatase 94, Total Protein 6.5, Albumin 4.0, Globulin 2.5, Albumin/Globulin Ratio 1.6 08/15/21 09:22: Lipase 108 08/15/21 09:22: PT 10.4, INR 0.91, APTT 25.9 08/15/21 09:22: Troponin I < 0.01 08/15/21 09:22: Amylase 100 08/15/21 12:21: Lactate 0.9 08/15/21 13:30: Urine Color Yellow, Urine Appearance Clear, Urine pH 7.0, Ur Specific [place] <= 1.005, Urine Protein Negative, Urine Glucose (UA) Negative, Urine Ketones Negative, Urine Blood Trace-i, Urine Nitrate Negative, Urine Bilirubin Negative, Urine Urobilinogen 0.2, Ur Leukocyte Esterase Negative, Urine RBC Occasional, Urine WBC None, Ur Squamous Epith Cells Occasional, Urine Bacteria None 08/15/21 14:02: SARS-CoV-2 (PCR) Not detected, Influenza A Untype (PCR) Not detected, Influenza Type B (PCR) Not detected 08/15/21 14:43: Troponin I < 0.01 08/15/21 17:55: Troponin I < 0.01 08/16/21 06:25: WBC 6.4 D, RBC 4.58, Hgb 14.6, Hct 44.8, MCV 97.9, MCH 31.9 H, MCHC 32.6, RDW 13.7, Plt Count 303, MPV 8.4, Neut % (Auto) 65.4, Lymph % (Auto) 26.4, [place] % (Auto) 5.8, Eos % (Auto) 1.4, Baso % (Auto) 1.0, Neut # (Auto) 4.2, Lymph # (Auto) 1.7, [place] # (Auto) 0.4, Eos # (Auto) 0.1, Baso # (Auto) 0.1 08/16/21 06:25: Sodium 137, Potassium 4.2, Chloride 103, Carbon Dioxide 30, Anion Gap 8.2, BUN 6 L D, Creatinine 0.70, Estimated Creat Clear 72, Estimated GFR 86, Est GFR ( Amer) 104, Glucose 93, Calcium 8.4, Total Bilirubin 0.9, AST 24, ALT 14, Alkaline Phosphatase 76, Total Protein 6.3, Albumin 3.9, Globulin 2.4, Albumin/Globulin Ratio 1.6 Vital Signs - 24 hr 08/15/21 08:46 08/15/21 09:00 08/15/21 09:30 Temperature 98.2 F Pulse Rate 64 58 L Pulse Rate [Left Radial] 65 Respiratory Rate 18 18 20 Blood Pressure 219/99 H 177/106 H Blood Pressure [Right Arm] 162/108 H 02 Sat by Pulse Oximetry 98 98 96 08/15/21 09:33 08/15/21 10:00 08/15/21 10:30 Temperature Pulse Rate 60 54 L 54 L Pulse Rate [Left Radial] Respiratory Rate 20 Blood Pressure 177/106 H 165/87 H 155/91 H Blood Pressure [Right Arm] 02 Sat by Pulse Oximetry 93 L 96 98 08/15/21 11:00 08/15/21 11:37 08/15/21 12:00 Temperature Pulse Rate 53 L 56 L 60 Pulse Rate [Left Radial] Respiratory Rate 20 Blood Pressure 171/86 H 184/83 H 157/88 H Blood Pressure [Right Arm] 02 Sat by Pulse Oximetry 96 100 97 08/15/21 12:30 08/15/21 13:00 08/15/21 13:30 Temperature Pulse Rate 55 L 53 L 50 L Pulse Rate [Left Radial] Respiratory Rate 18 Blood Pressure 190/91 H 160/87 H 178/90 H Blood Pressure [Right Arm] 02 Sat by Pulse Oximetry 99 96 97 08/15/21 15:39 08/15/21 16:00 08/15/21 16:15 Temperature 98 F 95.7 F L Pulse Rate 64 Pulse Rate [Left Radial] 85 41 L Respiratory Rate 16 18 Blood Pressure 160/81 H Blood Pressure [Right Arm] 190/98 H 02 Sat by Pulse Oximetry 95 08/15/21 20:00 08/15/21 20:05 08/16/21 00:00 Temperature 98.0 F 97.9 F Pulse Rate 50 L 50 L Pulse Rate [Left Radial] 60 57 L Respiratory Rate 20 16 20 Blood Pressure Blood Pressure [Right
[2021-08-16 13:31] LABS: Homocyst(e)ine 18.5 umol/L (0.0-14.5)
--- NOTE | 2021-08-16 15:43 | PC.NURSE ---
patient has done okay. has required pain medication frequently. states pain is better than yesterday. did also complain of a headache. tolerating liquid diet okay. vitals stable. rings out as needed. family has been in and out.
[2021-08-17] VITALS (7 sets, daily range): BP systolic 139–172; BP diastolic 66–93; PULSE 50–80; RESP 15–17; TEMP 36.4–36.8; O2SAT 92–96; BMI 17.2
--- NOTE | 2021-08-17 03:09 | PC.NURSE ---
Acquired patient during shift. Patient has required pain medication frequently, medicated patient per MAR. Patient tolerating liquid diet okay. VSS. Patient resting in bed call light within reach.
[2021-08-17 03:55] LABS: Protein C Antigen 94 % (60-150)
[2021-08-17 06:35] LABS: Anti-Thrombin III Antigen 91 % (72-124); Antithrombin Activity 114 % (75-135); Factor VIII Activity 189 % (56-140); Protein C Functional 144 % (73-180); Protein S, Free 95 % (61-136); Protein S, Total 86 % (60-150); Protein S-Functional 85 % (63-140)
--- NOTE | 2021-08-17 08:36 | HMH.ACPN2 ---
Internal Medicine - PN: Subj *Date: 08/17/21 *Time: 08:36 Interval history: Patient feels a little better this morning, still having pain, wants something to eat. Exam Vital signs and Labs for Last 24 Hours: Temp Pulse Resp BP Pulse Ox 98.2 F 60 17 145/75 H 94 L 08/17/21 08:00 08/17/21 08:00 08/17/21 08:00 08/17/21 08:00 08/17/21 08:00 Laboratory Results - last 24 hr 08/15/21 13:10: Protein C Antigen 94, Functional Protein C 144, Free Protein S Antigen 95, Functional Protein S 85, Total Protein S 86, Antithrombin III Ag 91, Antithrombin III Activ 114, Factor VIII Activity 189 H, Homocysteine 18.5 H Vital Signs - 24 hr 08/16/21 12:00 08/16/21 16:00 08/16/21 20:00 Temperature 97.9 F 98.0 F 97.7 F Pulse Rate 60 50 L 60 Pulse Rate [Left Radial] 59 L 54 L 57 L Respiratory Rate 18 18 16 Blood Pressure [Right Arm] 165/76 H 146/89 H 164/84 H 02 Sat by Pulse Oximetry 96 95 96 08/17/21 00:00 08/17/21 04:00 08/17/21 08:00 Temperature 97.7 F 97.8 F 98.2 F Pulse Rate 50 L 80 Pulse Rate [Left Radial] 54 L 57 L 60 Respiratory Rate 17 15 17 Blood Pressure [Right Arm] 154/81 H 161/93 H 145/75 H 02 Sat by Pulse Oximetry 93 L 92 L 94 L I & O for Last 24 hours: Intake & Output 08/14/21 08/15/21 08/16/21 08/17/21 23:59 23:59 23:59 23:59 Intake Total 3597 / 3597 Balance 3597 / 3597 Weight 107 lb 2 oz 113 lb 110 lb - Constitutional no acute distress - *Routine HEENT Exam Head: Present: normocephalic Eye: Present: EOMI, PERRL ENT: Present: mucous membranes moist - *Routine Neck Exam Present: supple. Absent: lymphadenopathy - *Routine Respiratory Exam Present: CTA bilaterally - *Routine Cardiovascular Exam Present: RRR - *Routine Abdominal Exam Present: soft, normoactive bowel sounds, tenderness (LUQ) - *Routine Extremities Exam Absent: cyanosis, clubbing, edema - *Routine Skin Exam Present: warm. Absent: rash - *Routine Neurological Exam Present: alert, oriented X3 Assessment and Plan (1) Splenic infarct Status: Acute Category: Medical Code(s): D73.5 - Infarction of spleen (2) History of pancreatitis Status: Chronic Category: Medical Code(s): Z87.19 - Personal history of other diseases of the digestive system - Assessment and plan all Dx Assessment and Plan for all problems:: Plan to advance diet today, continue current treatment.
[2021-08-18] VITALS: BP 178/89; PULSE 47; PULSE 50; RESP 17; TEMP 36.6; O2SAT 94
[2021-08-18 04:00] VITALS: BP 149/77; PULSE 58; PULSE 60; RESP 16; TEMP 36.3; O2SAT 93
--- NOTE | 2021-08-18 04:00 | PC.NURSE ---
PT HAS RESTED WELL THROUGH THE NIGHT, PO PAIN MED REQUIRED TWICE THROUGH THE NIGHT AND HAS RESTED WELL. NO OTHER ISSUES OR CONCERNS
[2021-08-18 04:59] VITALS: BMI 17.3
--- NOTE | 2021-08-18 06:39 | HMH.ACPN2 ---
Internal Medicine - PN: Subj *Date: 08/18/21 *Time: 06:39 Interval history: Patient feels better today, tolerated diet, anxious to go home. Exam Vital signs and Labs for Last 24 Hours: Temp Pulse Resp BP Pulse Ox 97.4 F L 58 L 16 149/77 H 93 L 08/18/21 04:00 08/18/21 04:00 08/18/21 04:00 08/18/21 04:00 08/18/21 04:00 Vital Signs - 24 hr 08/17/21 08:00 08/17/21 12:00 08/17/21 15:51 Temperature 98.2 F 97.6 F 98.2 F Pulse Rate 52 L 57 L Pulse Rate [Left Radial] 60 57 L 51 L Respiratory Rate 17 16 16 Blood Pressure [Right Arm] 145/75 H 158/73 H 139/66 02 Sat by Pulse Oximetry 94 L 92 L 95 08/17/21 16:00 08/17/21 20:00 08/18/21 00:00 Temperature 98.0 F 97.8 F Pulse Rate 55 L Pulse Rate [Left Radial] 62 50 L Respiratory Rate 15 17 Blood Pressure [Right Arm] 172/83 H 178/89 H 02 Sat by Pulse Oximetry 96 94 L 08/18/21 04:00 Temperature 97.4 F L Pulse Rate 60 Pulse Rate [Left Radial] 58 L Respiratory Rate 16 Blood Pressure [Right Arm] 149/77 H 02 Sat by Pulse Oximetry 93 L I & O for Last 24 hours: Intake & Output 08/15/21 08/16/21 08/17/21 08/18/21 23:59 23:59 23:59 23:59 Intake Total 3597 / 3597 1390 / 1390 Balance 3597 / 3597 1390 / 1390 Weight 107 lb 2 oz 113 lb 110 lb 110 lb 3.2 oz Microbiology Reports for the Last 24 Hours: Microbiology 08/15/21 12:21 Blood Blood Culture - Preliminary NO GROWTH AFTER 48 HOURS 08/15/21 12:21 Blood Blood Culture - Preliminary NO GROWTH AFTER 48 HOURS - Constitutional no acute distress - *Routine HEENT Exam Head: Present: normocephalic Eye: Present: EOMI, PERRL ENT: Present: mucous membranes moist - *Routine Neck Exam Present: supple. Absent: lymphadenopathy - *Routine Respiratory Exam Present: CTA bilaterally - *Routine Cardiovascular Exam Present: RRR - *Routine Abdominal Exam Present: soft, normoactive bowel sounds, tenderness (minimal LUQ) - *Routine Extremities Exam Absent: cyanosis, clubbing, edema - *Routine Skin Exam Present: warm. Absent: rash - *Routine Neurological Exam Present: alert, oriented X3 Assessment and Plan (1) Splenic infarct Status: Acute Category: Medical Code(s): D73.5 - Infarction of spleen (2) History of pancreatitis Status: Chronic Category: Medical Code(s): Z87.19 - Personal history of other diseases of the digestive system - Assessment and plan all Dx Assessment and Plan for all problems:: OK for discharge today with office f/u in 4 days. See orders.
[2021-08-18 07:32] VITALS: BP 162/86; PULSE 58; RESP 16; TEMP 36.6; O2SAT 96
--- NOTE | 2021-08-18 08:16 | PC.NURSE ---
pt has been discahrged from the facility. Took all of her belongings with her and voiced understanding of all dischagr eeducation and follow up appts. explained if symptoms worsen to go to ED. prescriptions ready to be picked up at [facility].
--- NOTE | 2021-08-20 22:09 | HMH.DCSUM ---
General - General Admission date:: 08/15/21 Discharge date: 08/18/21 HPI HPI: Ms. Anderson is a 56-year-old female who is relatively healthy other than an episode of pancreatitis approximately 16 years ago. She began having severe epigastric pain last night and presented to the emergency room for evaluation. Her abdominal and pelvic CT showed peripheral low-attenuation areas in the spleen worrisome for multiple infarcts. She will be admitted with plans for anticoagulation and observation. Hospital Course Hospital Course: The patient was admitted for observation and started on anticoagulation. She had a right upper quadrant ultrasound which showed a nonspecific hyperechoic focus in the liver possibly representing a hemangioma. There was a trace amount of sludge in the gallbladder. She also had an echo showing an EF of 55%. She did begin feeling better and her pain improved. She was able to eat. Her diet was advanced. By 08/18/2021 she was tolerating a diet and anxious to go home. She was stable to be discharged and will follow up in 4 days. Of note, her homocystine level was elevated as was her coagulation factor VIII activity. Objective Vital signs: Temp Pulse Resp BP Pulse Ox 97.8 F 58 L 16 162/86 H 96 08/18/21 07:32 08/18/21 07:32 08/18/21 07:32 08/18/21 07:32 08/18/21 07:32 Narrative: - Constitutional no acute distress <Arti Gonzalez 08/15/21 12:48> - *Routine HEENT Exam Head: Present: normocephalic <Arti Gonzalez 08/15/21 12:48> Eye: Present: EOMI, PERRL <Arti Gonzalez 08/15/21 12:48> ENT: Present: mucous membranes moist <Arti Gonzalez 08/15/21 12:48> - *Routine Neck Exam Present: supple. Absent: lymphadenopathy <Arti Gonzalez 08/15/21 12:48> - *Routine Respiratory Exam Present: CTA bilaterally <Arti Gonzalez 08/15/21 12:48> - *Routine Cardiovascular Exam Present: RRR <Arti Gonzalez 08/15/21 12:48> - *Routine Abdominal Exam Present: soft, normoactive bowel sounds, tenderness (Epigastric area), guarding (Epigastric area) <Arti Gonzaelz - 08/15/21 12:48> - *Routine Rectal Exam Rectal:: deferred <Arti Gonzalez - 08/15/21 12:48> - *Routine Genitalia Exam Genitalia:: deferred <Arti Gonzalez - 08/15/21 12:48> - *Routine Extremities Exam Absent: cyanosis, clubbing, edema <Arti Gonzalez - 08/15/21 12:48> - *Routine Skin Exam Present: warm. Absent: rash <Arti Gonzalez - 08/15/21 12:48> - *Routine Neurological Exam Present: alert, oriented X3 DS: Diagnosis - Discharge Diagnosis (1) Splenic infarct Status: Acute (2) History of pancreatitis Status: Chronic Discharge Plan - Patient Discharge Instructions ACTIVITY: Continue current activity DIET: continue same diet Patient Instructions: DI for Abdominal Pain-Adult - Follow up Plan Follow up with: Stuart Wang MD [Staff Physician] - 08/22/21 Disposition: Home, Self-Care Condition at discharge:: Improved Home Medications: Home Medications Medication Instructions Recorded Confirmed Type Aspirin [Aspirin 81mg EC Tab] 81 mg PO DAILY #30 tab 08/18/21 Rx Hydrocod/Acet 5/325 mg [[employer] 1 tab PO Q4HP PRN #18 tab 08/18/21 Rx 5/325mg tablet] Ondansetron [Zofran 4mg ODT] 4 mg PO TIDP PRN #12 tab 08/18/21 Rx Prescriptions/Medication Reconciliation: New Aspirin [Aspirin 81mg EC Tab] 81 mg PO DAILY #30 tab Ondansetron [Zofran 4mg ODT] 4 mg PO TIDP PRN #12 tab PRN Reason: Nausea And Vomiting Hydrocod/Acet 5/325 mg [[employer] 5/325mg tablet] 1 tab PO Q4HP PRN #18 tab PRN Reason: Severe Pain - Problem Reconciliation Problems Reviewed?: Yes
== END 2021-08-18 08:16 | disposition home or self-care (01) ==
LOC: ER 12:28 → 2ND 18:25
PROVIDERS: Admitting Provider Family Medicine; Emergency Provider Emergency Medicine; Visit Provider Family Medicine
DX: D73.5 Infarction of spleen (principal); Z20.822 Contact with and (suspected) exposure to COVID-19; F17.210 Nicotine dependence, cigarettes, uncomplicated
CPT/HCPCS: 36415; 71045; 74177; 76705; 80053; 81001; 81241; 82150; 83090; 83605; 83690; 84484; 85025; 85240; 85300; 85301; 85302; 85305; 85306; 85610; 85730; 86148; 87040; 93005; 93306; 96372; 96375; 99285; C9803; G0378; J2405; Q9967; U0003; U0005

== ENCOUNTER 2021-12-21 15:49 | Emergency (ER) | payer MEDICAID, SELFPAY ==
[2021-12-21 16:44] VITALS: BP 188/95; PULSE 60; RESP 16; TEMP 36.7; O2SAT 99; BMI 16.9
--- NOTE | 2021-12-21 16:52 | EXP.UTC ---
Discharge Plan Disposition Patient Disposition: Home, Self-Care Condition: Good Prescriptions Prescriptions: New ciprofloxacin HCl [Cipro] 500 mg tablet 500 mg PO BID Qty: 10 0RF phenazopyridine [Pyridium] 200 mg tablet 200 mg PO Q8H Qty: 6 0RF No Action hydrocodone-acetaminophen 1 TAB tablet 1 tab PO Q4HP PRN (Reason: Severe Pain) Qty: 18 0RF aspirin 81 MG tablet,delayed release (DR/EC) 81 mg PO DAILY Qty: 30 0RF ondansetron 4 MG tablet,disintegrating 4 mg PO TIDP PRN (Reason: Nausea And Vomiting) Qty: 12 0RF Referrals Follow up/Referrals: Nasir Ernandez [Primary Care Provider] - See instructions Activity Restrictions/Add. Instructions Additional Instructions/Restrictions: Take medicine as prescribed until gone Urine culture should be back Thursday/Thursday Return to ER if symptoms worsen - cannot do CT imaging in [facility] Clinical Impressions Clinical Impression: UTI (urinary tract infection) Instructions Patient Instructions: DI for Urinary Tract Infection (UTI) Discharge ED Provider: Frances Martinez [facility] [place] HPI General Stated complaint: possible UTI Mode of Arrival: Ambulatory Source of Information: Patient Limitations: No Limitations Time Seen by Provider: 12/21/21 17:22 Description of Symptoms (Recalled from Triage Doc. by RN): pt comes in with c/o possible uti. symptoms began last night. HEENT Symptoms (Recalled from RN notes): No Resp Symptoms (Recalled from RN notes): No Skin Symptoms (Recalled from RN notes): No MS Symptoms (Recalled from RN notes): No Functional Status (Recalled from RN notes): n/a History of Present Illness Provider Complaint: Left flank pain, started last night. Feels like she might have a UTI. 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 Onset (ago): day(s) Location: back Radiation: flank (left) Severity: moderate Severity scale (1-10): 5 Quality: aching and constant Consistency: constant Relieving factors: none Exacerbating factors: none Associated symptoms: denies other symptoms Treatments prior to arrival: none Related Data Previous Rx's Medication Instructions Recorded aspirin 81 mg tablet,delayed 81 mg PO DAILY #30 tabs 08/18/21 release hydrocodone 5 mg-acetaminophen 325 1 tab PO Q4HP PRN Severe Pain #18 08/18/21 mg tablet tabs ondansetron 4 mg disintegrating 4 mg PO TIDP PRN Nausea And 08/18/21 tablet Vomiting #12 tabs ciprofloxacin HCl 500 mg tablet 500 mg PO BID #10 tabs 12/21/21 (Cipro) phenazopyridine 200 mg tablet 200 mg PO Q8H pain 6 doses #6 tabs 12/21/21 (Pyridium) Allergies Allergy/AdvReac Type Severity Reaction Status Date / Time No Known Allergies Allergy Verified 12/21/21 16:49 Worker's Comp Is this a Worker's Comp case?: No PFSH PFSH Social History Smoking Status: Current every day smoker tobacco type: cigarettes packs per day: 1 alcohol intake: never substance use type: denies use current occupational status: employed household members: children housing: house current occupation: [employer] Obtained: Yes All systems reviewed & no additional complaints except as documented Genitourinary Female Genitourinary: Reports flank pain Musculoskeletal Musculoskeletal: Reports back pain Physical Exam General General appearance: alert and in no apparent distress Head Head exam: atraumatic, normocephalic and normal inspection Eye Eye exam: Present normal appearance, PERRL and EOMI ENT ENT exam: Present normal exam, normal oropharynx, mucous membranes moist, TM's normal bilaterally and normal external ear exam Neck Neck exam: Present normal inspection, full ROM and trachea midline; Absent meningismus or lymphadenopathy Chest Chest inspection: Present normal inspection and symmetric chest wall rise; Absent tenderness Respiratory Respiratory exam: Present normal lung sounds
[2021-12-21 16:55] LABS: Apearance,Urine Clear (Clear); Bilirubin,Urine Negative (Negative); Blood, Urine Trace (Negative); Color,Urine Yellow (Yellow); Glucose,Urine (UA) Negative (Negative); Ketones,Urine Negative (Negative); PH,Urine 6.5 (5.0-8.5); Protein,Urine Negative (Negative); UTC Leukocyte Esterase,Urine Negative (Negative); UTC Nitrate,Urine Negative (Negative); Urobilinogen,Urine 0.2 EU/dl (0.2)
[2021-12-21 17:37] VITALS: BP 188/95; PULSE 60; RESP 16; TEMP 36.7
== END 2021-12-21 17:37 | disposition home or self-care (01) ==
PROVIDERS: Emergency Provider Physician Assistant; PCP Family Medicine
DX: N39.0 Urinary tract infection, site not specified (principal)
CPT/HCPCS: 81003; 87086; 99212; G0463

== ENCOUNTER 2022-06-16 11:57 | Emergency (ER) | payer MEDICAID, SELFPAY ==
[2022-06-16] VITALS (9 sets, daily range): BP systolic 126–175; BP diastolic 67–145; PULSE 65–87; RESP 16–20; TEMP 36.5–36.7; O2SAT 94–99; BMI 16.7
--- NOTE | 2022-06-16 12:10 | ECG_ITS ---
APPROVED REPORT Exam: Resting ECG HR:79 bpm ECG Measurements Heart Rate 79 AXES FL 161 P -16 QRSd 102 QRS -17 QT 377 T -21 QTc 412 Conclusion SINUS RHYTHM LEFT ATRIAL ENLARGEMEnt POSSIBLE LEFT VENTRICULAR HYPERTROPHY [VOLTAGE CRITERIA PLUS LAE OR QRS WIDENING] ABNORMAL ECG UNCONFIRMED REPORT Electronically signed by : Barrett De Leon MD 06/16/2022 18:50:21
--- NOTE | 2022-06-16 12:14 | HMH.EDGENADL ---
Discharge Plan Disposition Patient Disposition: Home, Self-Care Condition: Good Prescriptions Prescriptions: No Action hydrocodone-acetaminophen 1 TAB tablet 1 tab PO Q4HP PRN (Reason: Severe Pain) Qty: 18 0RF aspirin 81 MG tablet,delayed release (DR/EC) 81 mg PO DAILY Qty: 30 0RF ondansetron 4 MG tablet,disintegrating 4 mg PO TIDP PRN (Reason: Nausea And Vomiting) Qty: 12 0RF ciprofloxacin HCl [Cipro] 500 mg tablet 500 mg PO BID Qty: 10 0RF phenazopyridine [Pyridium] 200 mg tablet 200 mg PO Q8H Qty: 6 0RF Referrals Follow up/Referrals: Nasir Ernandez [Primary Care Provider] - See instructions Activity Restrictions/Add. Instructions Additional Instructions/Restrictions: Your emergency evaluation today did not reveal any acute abnormality requiring hospitalization or inpatient treatment. Your pain is likely attributable to your chronic pancreatitis. Your CT scan showed an improvement of your spleen from a renal infarction in the past with no evidence of any ongoing thrombosis. Please follow-up with your primary care doctor and your GI doctor for ongoing treatment of your chronic pancreatitis. Return with worsening symptoms. Clinical Impressions Clinical Impression: Abdominal pain, chronic, epigastric, Chronic pancreatitis Instructions Patient Instructions: DI for Acute Abdominal Pain Discharge ED Provider: William Castañeda Adult HPI General Chief complaint: Abdominal Pain Stated complaint: abd pain Time Seen by Provider: 06/16/22 12:14 History of Present Illness HPI narrative: Patient is a 57-year-old female who presents with epigastric and left upper quadrant abdominal pain for the last several days. Has a history of extensive pancreatitis which is in the past been felt to be secondary to clots. She was admitted recently and from her chart review looked like she was admitted for possible splenic infarction and was supposed to be on anticoagulation however the patient denies being on any current anticoagulation. Pain is severe patient denies any chest pain any shortness of breath patient denies any lower extremity pain or changes in sensation temperature or motor function. Related Data Previous Rx's Medication Instructions Recorded aspirin 81 mg tablet,delayed 81 mg PO DAILY #30 tabs 08/18/21 release hydrocodone 5 mg-acetaminophen 325 1 tab PO Q4HP PRN Severe Pain #18 08/18/21 mg tablet tabs ondansetron 4 mg disintegrating 4 mg PO TIDP PRN Nausea And 08/18/21 tablet Vomiting #12 tabs ciprofloxacin HCl 500 mg tablet 500 mg PO BID #10 tabs 12/21/21 (Cipro) phenazopyridine 200 mg tablet 200 mg PO Q8H pain 6 doses #6 tabs 12/21/21 (Pyridium) Allergies Allergy/AdvReac Type Severity Reaction Status Date / Time No Known Allergies Allergy Verified 12/21/21 16:49 PFSH PFS Disclaimer: The information contained in this section may have been updated after the patient was seen, as this information can be updated by other users. Social History (Updated 12/21/21 @ 17:30 by LISBET Khan) Smoking Status: Current every day smoker tobacco type: cigarettes packs per day: 1 alcohol intake: never substance use type: denies use current occupational status: employed Travel in the last 8 weeks: None household members: children housing: house current occupation: [employer] ROS Obtained: Yes All systems reviewed & no additional complaints except as documented Physical Exam General General appearance: alert Respiratory Respiratory exam: Present normal lung sounds bilaterally Cardiovascular Cardiovascular exam: Present regular rate; Absent tachycardia Abdominal Exam Abdominal exam: Present other (Epigastric and left upper quadrant tenderness to palpation no masses felt no other rebound guarding or rigid) Neurological Exam Neurological exam: Present alert, oriented X3 and CN II-XII intact Medical Decision Making Frankie Inquiry Pt receiving contr
--- NOTE | 2022-06-16 12:14 | PC.NURSE ---
DR ARAYA AT BEDSIDE TO EVALUATE PT
--- NOTE | 2022-06-16 12:32 | CT_ITS ---
FINAL REPORT TECHNIQUE: Pre-and postcontrast images of the abdomen and pelvis were performed by computed tomography. Extensive 3-D reconstruction images were performed. A CTA was performed. This study was performed with techniques to keep radiation doses as low as reasonably achievable (ALARA). Individualized dose reduction techniques using automated exposure control or adjustment of mA and/or kV according to the patient''s size were employed. CLINICAL HISTORY: Epigastric/LUQ abd pain w c/o nausea x days. h/o splenic infarct COMPARISON: 08/15/2021 FINDINGS: ABDOMEN: There is mild bibasilar atelectasis. Precontrast images demonstrate no evidence of nephrolithiasis. No adrenal masses are identified. The liver and pancreas are unremarkable. The heterogeneously enhancing spleen is felt to represent normal variant. The presumed infarct seen on the prior has improved. There is gallbladder wall thickening, likely inflammatory. CTA: The abdominal aorta is proper caliber. The SMA, celiac axis, and GERTRUDIS are patent. There is no significant stenosis. The renal arteries are patent bilaterally. There is mild to moderate vascular calcification. PELVIS: There is mild stenosis of the left common iliac arteries. The internal iliac arteries are patent. IMPRESSION: Mild stenosis of the left common iliac arteries, otherwise no other significant stenosis or occlusion is identified. Improved appearance of the spleen. Reviewed, Interpreted and Dictated by Geo Gutierrez III, MD Transcribed by Nadia Alejandra Authenticated and [facility]
[2022-06-16 12:39] LABS: Basophils # 0.1 K/mm3 (0-0.2); Basophils % 1.1 % (0.1-2.0); Eosinophils # 0.1 K/mm3 (0.0-0.4); Eosinophils % 1.2 % (0.1-12.0); Hematocrit 46.9 % (37.0-47.0); Lymphocytes # 2.4 K/mm3 (0.7-4.5); Mean Corpuscular HGB Conc 34.1 g/dL (31.8-35.4); Mean Corpuscular Hemoglobin 31.5 pg (27.0-31.2); Mean Corpuscular Volume 92.5 fl (81-99); Monocytes # 0.5 K/mm3 (0.1-1.0); Monocytes % 6.3 % (1.7-9.3); Neutrophils # 4.4 K/mm3 (1.8-7.8); Neutrophils % 59.3 % (37.0-80.0); Platelet Count 371 K/mm3 (142-424); Red Blood Count 5.07 M/mm3 (4.20-5.40); Red Cell Distribution Width 13.3 % (11.5-17.5); White Blood Count 7.4 K/mm3 (4.8-10.8)
[2022-06-16 12:41] LABS: Chloride 100 mmol/L (98-107); Potassium 3.4 mmoL/L (3.5-5.1); Sodium 136 mmol/L (136-145)
--- NOTE | 2022-06-16 12:42 | PC.NURSE ---
PT MEDICATED PER EMAR, DAUGHTER AT BEDSIDE
[2022-06-16 12:43] LABS: Blood Urea Nitrogen 17 mg/dl (7-17); Creatinine Clearance Estimated 43 mL/min (50-200); Estimated Glomerular Filt Rate 51 ml/min (>60); GFR (African American) 62 ML/MIN (>60)
[2022-06-16 12:44] LABS: Alanine Aminotransferase 15 U/L (12-78); Albumin Level 4.6 g/dl (3.5-5.0); Albumin/Globulin Ratio 1.5 (1.1-1.8); Alkaline Phosphatase 103 U/L (38-126); Anion Gap 13.4 mEq/L (5-15); Aspartate Amino Transferase 21 U/L (14-36); Bilirubin,Total 0.8 mg/dl (0.2-1.3); Calcium 9.3 mg/dl (8.4-10.2); Carbon Dioxide 26 mmol/L (22.0-30.0); Glucose 103 mg/dl (74-100); Lipase 294 U/L (23-300); Total Protein,Serum 7.6 g/dl (6.3-8.2)
--- NOTE | 2022-06-16 13:25 | PC.NURSE ---
PT TO CT AT THIS TIME
--- NOTE | 2022-06-16 14:26 | PC.NURSE ---
ROUNDED ON PT AT THIS TIME. NO NEEDS VOICED. PT AND FAMILY UPDATED
--- NOTE | 2022-06-16 15:39 | PC.NURSE ---
DR ARAYA AT BEDSIDE TO UPDATE PT AND FAMILY ON POC
== END 2022-06-16 15:58 | disposition home or self-care (01) ==
PROVIDERS: Emergency Provider Student in an Organized Health Care Education/Training Program; PCP Family Medicine
DX: R10.13 Epigastric pain (principal); G89.29 Other chronic pain; K86.1 Other chronic pancreatitis; F17.210 Nicotine dependence, cigarettes, uncomplicated
CPT/HCPCS: 74174; 80053; 83690; 85025; 93005; 96361; 96374; 96375; 99285; J2405; Q9967

== ENCOUNTER → 2022-11-03 15:33 | Outpatient (CLI) | payer MEDICAID, SELFPAY ==
[2022-11-03 16:00] LABS: Basophils % 0.6 % (0.1-2.0); Eosinophils # 0.2 K/mm3 (0.0-0.4); Eosinophils % 3.3 % (0.1-12.0); Hematocrit 43.4 % (37.0-47.0); Hemoglobin 13.8 g/dL (12.2-16.2); Lymphocytes # 2.6 K/mm3 (0.7-4.5); Lymphocytes % 39.7 % (10-50); Mean Corpuscular HGB Conc 31.9 g/dL (31.8-35.4); Mean Corpuscular Volume 94.1 fl (81-99); Monocytes # 0.3 K/mm3 (0.1-1.0); Monocytes % 4.3 % (1.7-9.3); Neutrophils # 3.3 K/mm3 (1.8-7.8); Platelet Count 290 K/mm3 (142-424); Red Blood Count 4.61 M/mm3 (4.20-5.40); Red Cell Distribution Width 12.5 % (11.5-17.5); White Blood Count 6.4 K/mm3 (4.8-10.8)
[2022-11-03 16:34] LABS: Anion Gap 11.3 mEq/L (5-15); Blood Urea Nitrogen 13 mg/dl (7-17); Calcium 9.2 mg/dl (8.4-10.2); Carbon Dioxide 27 mmol/L (22.0-30.0); Chloride 104 mmol/L (98-107); Estimated Glomerular Filt Rate 74 ml/min (>60); GFR (African American) 89 ML/MIN (>60); Glucose 90 mg/dl (74-100); Potassium 4.3 mmoL/L (3.5-5.1); Sodium 138 mmol/L (136-145)
== END ==
PROVIDERS: PCP Family Medicine; Visit Provider Orthopaedic Surgery
DX: M18.12 Unilateral primary osteoarthritis of first carpometacarpal joint, left hand (principal)
CPT/HCPCS: 36415; 80048; 85025

== ENCOUNTER 2022-11-14 21:45 | Emergency (ER) | payer MEDICAID, SELFPAY ==
[2022-11-14 21:46] VITALS: BP 139/76; PULSE 60; RESP 16; TEMP 36.4; O2SAT 92; BMI 15.5
--- NOTE | 2022-11-14 22:15 | HMH.EDGENADL ---
Discharge Plan Disposition Patient Disposition: Home, Self-Care Condition: Good Prescriptions Prescriptions: New ondansetron 4 mg tablet,disintegrating 4 mg PO Q8H PRN (Reason: nausea and vomiting) 4 Days Qty: 16 0RF No Action hydrocodone-acetaminophen 1 TAB tablet 1 tab PO Q4HP PRN (Reason: Severe Pain) Qty: 18 0RF aspirin 81 MG tablet,delayed release (DR/EC) 81 mg PO DAILY Qty: 30 0RF ondansetron 4 MG tablet,disintegrating 4 mg PO TIDP PRN (Reason: Nausea And Vomiting) Qty: 12 0RF ciprofloxacin HCl [Cipro] 500 mg tablet 500 mg PO BID Qty: 10 0RF phenazopyridine [Pyridium] 200 mg tablet 200 mg PO Q8H Qty: 6 0RF Referrals Follow up/Referrals: Provider,Referral, MD [Primary Care Provider] - See instructions Activity Restrictions/Add. Instructions Additional Instructions/Restrictions: At this time is felt you are safe to be discharged home. If new or worsening symptoms please do not hesitate to return to the emergency department. Please take your medication as prescribed. Clinical Impressions Clinical Impression: Adverse effects of medication, Nausea, Post-op pain Discharge ED Provider: Milan Dominguez General Adult HPI General Chief complaint: Nausea/Vomiting/Diarrhea Stated complaint: fever,vomiting Time Seen by Provider: 11/14/22 21:49 Mode of Arrival: Wheelchair Source of Information: Patient Limitations: No Limitations Description of Symptoms (Recalled from ER Triage Doc. by RN): pt states have a lt thumb joint replacement yesterday @ [facility]. pt c/o sweats, weakness, vomitting. pt currently taking oxycodone and motrin 800 and not eating very much. History of Present Illness HPI narrative: Patient is a 49-year-old female with past medical history of refractory arthritis with recent left thumb joint replacement who presents emergency department for evaluation of vomiting. History is obtained by patient and family member at bedside. Patient was prescribed oxycodone and ibuprofen. After taking it she has felt nauseous with associated nonbloody vomiting. Patient was not prescribed an antinausea medication. She also has neck pain at the site where her sling is. No other acute complaints at this time. Related Data Previous Rx's Medication Instructions Recorded aspirin 81 mg tablet,delayed 81 mg PO DAILY #30 tabs 08/18/21 release hydrocodone 5 mg-acetaminophen 325 1 tab PO Q4HP PRN Severe Pain #18 08/18/21 mg tablet tabs ondansetron 4 mg disintegrating 4 mg PO TIDP PRN Nausea And 08/18/21 tablet Vomiting #12 tabs ciprofloxacin HCl 500 mg tablet 500 mg PO BID #10 tabs 12/21/21 (Cipro) phenazopyridine 200 mg tablet 200 mg PO Q8H pain 6 doses #6 tabs 12/21/21 (Pyridium) ondansetron 4 mg disintegrating 4 mg PO Q8H PRN nausea and 11/14/22 tablet vomiting 4 days #16 tabs Allergies Allergy/AdvReac Type Severity Reaction Status Date / Time No Known Allergies Allergy Verified 12/21/21 16:49 PFSH PFSH Disclaimer: The information contained in this section may have been updated after the patient was seen, as this information can be updated by other users. Social History (Updated 12/21/21 @ 17:30 by LISBET Khan) Smoking Status: Current every day smoker tobacco type: cigarettes packs per day: 1 alcohol intake: never substance use type: denies use current occupational status: employed Travel in the last 8 weeks: None household members: children housing: house current occupation: [employer] ROS Obtained: Yes Systems reviewed as appropriate & no additional complaints except as documented Physical Exam General General appearance: alert and in no apparent distress Head Head exam: atraumatic and normocephalic Eye Eye exam: Present PERRL and EOMI ENT ENT exam: Present mucous membranes moist Neck Neck exam: Present normal inspection Chest Chest inspection: Present normal inspection and symmetric chest wall rise Respiratory Respirator
--- NOTE | 2022-11-14 23:30 | HMH.EDGENADL ---
Discharge Plan Disposition Patient Disposition: Home, Self-Care Condition: Good Prescriptions Prescriptions: New ondansetron 4 mg tablet,disintegrating 4 mg PO Q8H PRN (Reason: nausea and vomiting) 4 Days Qty: 16 0RF No Action hydrocodone-acetaminophen 1 TAB tablet 1 tab PO Q4HP PRN (Reason: Severe Pain) Qty: 18 0RF aspirin 81 MG tablet,delayed release (DR/EC) 81 mg PO DAILY Qty: 30 0RF ondansetron 4 MG tablet,disintegrating 4 mg PO TIDP PRN (Reason: Nausea And Vomiting) Qty: 12 0RF ciprofloxacin HCl [Cipro] 500 mg tablet 500 mg PO BID Qty: 10 0RF phenazopyridine [Pyridium] 200 mg tablet 200 mg PO Q8H Qty: 6 0RF Referrals Follow up/Referrals: Provider,Referral, MD [Primary Care Provider] - See instructions Activity Restrictions/Add. Instructions Additional Instructions/Restrictions: At this time is felt you are safe to be discharged home. If new or worsening symptoms please do not hesitate to return to the emergency department. Please take your medication as prescribed. Clinical Impressions Clinical Impression: Adverse effects of medication, Nausea, Post-op pain Discharge ED Provider: Milan Dominguez General Adult HPI General Chief complaint: Nausea/Vomiting/Diarrhea Stated complaint: fever,vomiting Time Seen by Provider: 11/14/22 21:49 Mode of Arrival: Wheelchair Source of Information: Patient Limitations: No Limitations Description of Symptoms (Recalled from ER Triage Doc. by RN): pt states have a lt thumb joint replacement yesterday @ [facility]. pt c/o sweats, weakness, vomitting. pt currently taking oxycodone and motrin 800 and not eating very much. Related Data Previous Rx's Medication Instructions Recorded aspirin 81 mg tablet,delayed 81 mg PO DAILY #30 tabs 08/18/21 release hydrocodone 5 mg-acetaminophen 325 1 tab PO Q4HP PRN Severe Pain #18 08/18/21 mg tablet tabs ondansetron 4 mg disintegrating 4 mg PO TIDP PRN Nausea And 08/18/21 tablet Vomiting #12 tabs ciprofloxacin HCl 500 mg tablet 500 mg PO BID #10 tabs 12/21/21 (Cipro) phenazopyridine 200 mg tablet 200 mg PO Q8H pain 6 doses #6 tabs 12/21/21 (Pyridium) ondansetron 4 mg disintegrating 4 mg PO Q8H PRN nausea and 11/14/22 tablet vomiting 4 days #16 tabs Allergies Allergy/AdvReac Type Severity Reaction Status Date / Time No Known Allergies Allergy Verified 12/21/21 16:49 PFSH [facility] Disclaimer: The information contained in this section may have been updated after the patient was seen, as this information can be updated by other users. Social History (Updated 12/21/21 @ 17:30 by LISBET Khan) Smoking Status: Current every day smoker tobacco type: cigarettes packs per day: 1 alcohol intake: never substance use type: denies use current occupational status: employed Travel in the last 8 weeks: None household members: children housing: house current occupation: [employer] Physical Exam General General appearance: alert and in no apparent distress Medical Decision Making Vital Signs: 11/14/22 21:46 Temperature 97.6 F Temperature Source Oral Pulse Rate [Right] 60 Respiratory Rate 16 Blood Pressure [Right Arm] 139/76 Blood Pressure Mean [Right Arm] 97 02 Sat by Pulse Oximetry 92 L Orders (Tests/Meds): ED MEDICATIONS Discontinued Medications Generic Name Dose Route Start Last Admin Trade Name Freq PRN Reason Stop Dose Admin Lactated Ringer's 1,000 mls @ 999 mls/hr 11/14/22 22:15 11/14/22 22:19 Lactated Ringer's 1000 Ml Bag IV 11/14/22 23:15 999 mls/hr .Q1H1M CONNOR Administration Morphine Sulfate 4 mg 11/14/22 22:55 11/14/22 22:56 Morphine 4mg/Ml Syringe IV 11/14/22 22:56 4 mg ONCE ONE Administration Ondansetron HCl 4 mg 11/14/22 22:11 11/14/22 22:20 Ondansetron 4mg/2ml Vial IV 11/14/22 22:12 4 mg ONCE ONE Administration Critical Care Time Critical Care Time Attestation: On 11/14/22, [facility]
[2022-11-14 23:52] VITALS: BP 137/81; PULSE 64; RESP 16; TEMP 36.4; O2SAT 94
== END 2022-11-14 23:57 | disposition home or self-care (01) ==
PROVIDERS: Emergency Provider Emergency Medicine
DX: R53.1 Weakness (principal); R11.2 Nausea with vomiting, unspecified; G89.18 Other acute postprocedural pain; R50.82 Postprocedural fever; T50.995A Adverse effect of other drugs, medicaments and biological substances, initial encounter; F17.210 Nicotine dependence, cigarettes, uncomplicated
CPT/HCPCS: 96361; 96374; 96375; 99284; J2405

== ENCOUNTER 2023-01-29 09:00 | Outpatient (RCR) | payer MEDICAID, SELFPAY | END 2023-01-29 09:05 | disposition home or self-care (01) | LOC: OT 09:00 | PROVIDERS: Visit Provider Orthopaedic Surgery | DX: M79.645 Pain in left finger(s) (principal); Z96.692 Finger-joint replacement of left hand | CPT/HCPCS: 97010; 97014; 97110; 97140; 97164; 97165; 97530; G0283 ==

== ENCOUNTER 2023-03-30 15:07 | Emergency (ER) | payer MEDICAID, SELFPAY ==
[2023-03-30 15:45] VITALS: BP 137/90; PULSE 88; RESP 19; TEMP 36.9; O2SAT 98; BMI 15.7
--- NOTE | 2023-03-30 16:04 | EXP.UTC ---
Discharge Plan Disposition Patient Disposition: Home, Self-Care Condition: Good Prescriptions Prescriptions: New ondansetron 4 mg tablet,disintegrating 4 mg PO Q8H PRN (Reason: nausea and vomiting) Qty: 10 0RF No Action aspirin 81 MG tablet,delayed release (DR/EC) 81 mg PO DAILY Qty: 30 0RF amlodipine 5 mg tablet 5 mg PO DAILY Patient Comments: TAKE 1 TABLET BY MOUTH ONCE DAILY pravastatin 20 mg tablet 20 mg PO DAILY Patient Comments: TAKE 1 TABLET BY MOUTH ONCE DAILY Referrals Follow up/Referrals: Nasir Ernandez [Primary Care Provider] - See instructions Activity Restrictions/Add. Instructions Additional Instructions/Restrictions: *Monitor Temp, Over the counter Motrin or Tylenol as directed/as needed Tylenol every 4 hours and Motrin every 6 hours (as long as your family doctor has told you that you can take it) for fever or pain. and straight to ER if unable to lower temp less than 101.0 after medication given *Warm salt water gargles may help to soothe the throat *Throat Lozenges? *Warm fluids like tea with honey may help to soothe the throat? *Sleep elevated *Humidifier/Vaporizer Follow up IMMEDIATELY for new or worsening symptoms or no Noticeable improvement over the next 48-72 hours. 911 for difficulty breathing or swallowing You were tested for today for COVID19 your test result should be back in the next 24 hours You may check for your results on the [facility] [employer] if your COVID test is positive you must Quarantine for 5 days Clinical Impressions Clinical Impression: Viral syndrome Stand Alone Forms Stand Alone Forms: Work/School Release Instructions Patient Instructions: DI for Viral Syndrome Discharge ED Provider: Rosie Phillips [facility] HPI General Stated complaint: cough, PICKARD, body aches, vomiting Mode of Arrival: Ambulatory Source of Information: Patient Limitations: No Limitations Time Seen by Provider: 03/30/23 16:04 Description of Symptoms (Recalled from Triage Doc. by RN): body aches, PICKARD, cough, and vomiting. HEENT Symptoms (Recalled from RN notes): Yes Resp Symptoms (Recalled from RN notes): No Skin Symptoms (Recalled from RN notes): No MS Symptoms (Recalled from RN notes): No Functional Status (Recalled from RN notes): n/a History of Present Illness Provider Complaint: Patient states that she has been having chills, body aches, cough and upset stomach States that she was worried she may have flu or COVID and wanted to get tested for flu and COVID Related Data Home Medications Medication Instructions Recorded Confirmed amlodipine 5 mg tablet 5 mg PO DAILY 03/30/23 03/30/23 pravastatin 20 mg tablet 20 mg PO DAILY 03/30/23 03/30/23 Previous Rx's Medication Instructions Recorded aspirin 81 mg tablet,delayed 81 mg PO DAILY #30 tabs 08/18/21 release ondansetron 4 mg disintegrating 4 mg PO Q8H PRN nausea and 03/30/23 tablet vomiting #10 tabs Allergies Allergy/AdvReac Type Severity Reaction Status Date / Time No Known Allergies Allergy Verified 03/30/23 16:03 Worker's Comp Is this a Worker's Comp case?: No [facility] Disclaimer: The information contained in this section may have been updated after the patient was seen, as this information can be updated by other users. Social History Smoking Status: Current every day smoker tobacco type: cigarettes packs per day: 1 alcohol intake: never substance use type: denies use current occupational status: employed Travel in the last 8 weeks: None household members: children housing: house current occupation: [employer] Obtained: Yes All systems reviewed & no additional complaints except as documented and Yes Systems reviewed as appropriate & no additional complaints except as documented Constitutional Constitutional: Reports system reviewed and no additional complaints, exc
[2023-03-30 16:12] LABS: UTC Influenza A Antigen Negative (Negative); UTC Influenza B Antigen Negative (Negative)
[2023-03-30 16:22] VITALS: BP 137/90; PULSE 88; RESP 18; TEMP 36.9; O2SAT 98
== END 2023-03-30 16:22 | disposition home or self-care (01) ==
PROVIDERS: Emergency Provider Nurse Practitioner; PCP Family Medicine
DX: U07.1 COVID-19 (principal); R51.9 Headache, unspecified; R11.2 Nausea with vomiting, unspecified; R05.9 Cough, unspecified; M79.18 Myalgia, other site; F17.210 Nicotine dependence, cigarettes, uncomplicated
CPT/HCPCS: 87635; 87804; 99212; 99214; G0463

== ENCOUNTER 2024-09-15 16:02 | Emergency (ER) | payer MEDICAID, SELFPAY ==
[2024-09-15 16:12] VITALS: BP 172/92; PULSE 79; RESP 20; TEMP 36.6; O2SAT 98; BMI 20.5
[2024-09-15] MEDS: DEXAMETHASONE 4MG TABLET 10 MG PO (16:55)
[2024-09-15] MEDS: METHOCARBAMOL 500MG TABLET 1500 MG PO (16:55)
[2024-09-15] MEDS: KETOROLAC 30MG/ML VIAL 15 MG IM (16:56)
--- NOTE | 2024-09-15 17:51 | HMH.EDGENADL ---
Discharge Plan Disposition Patient Disposition: Home, Self-Care Prescriptions Prescriptions: New prednisone 20 mg tablet 40 mg PO DAILY 5 Days Qty: 10 0RF methocarbamol 750 mg tablet 1,500 mg PO TID 5 Days Qty: 30 0RF No Action aspirin 81 MG tablet,delayed release (DR/EC) 81 mg PO DAILY Qty: 30 0RF amlodipine 5 mg tablet 5 mg PO DAILY Patient Comments: TAKE 1 TABLET BY MOUTH ONCE DAILY pravastatin 20 mg tablet 20 mg PO DAILY Patient Comments: TAKE 1 TABLET BY MOUTH ONCE DAILY ondansetron 4 mg tablet,disintegrating 4 mg PO Q8H PRN (Reason: nausea and vomiting) Qty: 10 0RF Referrals Follow up/Referrals: Nasir Ernandez [Primary Care Provider] - See instructions Activity Restrictions/Add. Instructions Additional Instructions/Restrictions: Prednisone each morning after waking up with plenty of food and water. Call your family doctor to establish care for this visit to the emergency department and schedule follow-up within 48 hours to ensure improvement. If you have any worsening of your condition or any other concerning signs or symptoms, return to the emergency department or your primary care doctor for further evaluation. Clinical Impressions Clinical Impression: Radiculopathy Instructions Patient Instructions: DI for Low Back Pain Print Language Print Language: Monegasque Discharge ED Provider: Magan Van General Adult HPI General Chief complaint: Back Pain/Injury Stated complaint: back pain Time Seen by Provider: 09/15/24 16:15 Mode of Arrival: Ambulatory Source of Information: Patient Description of Symptoms (Recalled from ER Triage Doc. by RN): pt is complaining of low right back pain x1 week that radiates around front into hip, pt denies any fall or trauma and denies any issues with uriantion or bowel mvmt and no weakness in legs History of Present Illness HPI narrative: Please note that above description of symptoms, in this electronic medical record under categorization of recalled from ER triage doctor by RN are reflective of an initial nursing assessment, however, is not reflective of my full history and physical exam that was personally taken and clarified. Consequentially, this preceding description of symptoms, which may include the patient's categorized chief complaint in the EMR, do not reflect my personal clinical impression, and the ultimate description of history of present illness and patient stated complaints should be deferred to this section of the note. Unless stated otherwise or congruent with this section of the note, additional signs, symptoms, or incongruence should be interpreted as inaccurate with my clinical impression. Related Data Home Medications ?Medication ?Instructions ?Recorded ?Confirmed amlodipine 5 mg tablet 5 mg PO DAILY 03/30/23 03/30/23 pravastatin 20 mg tablet 20 mg PO DAILY 03/30/23 03/30/23 Previous Rx's ?Medication ?Instructions ?Recorded aspirin 81 mg tablet,delayed 81 mg PO DAILY #30 tabs 08/18/21 release ondansetron 4 mg disintegrating 4 mg PO Q8H PRN nausea and 03/30/23 tablet vomiting #10 tabs methocarbamol 750 mg tablet 1,500 mg (2 x 750 mg) PO TID 5 09/15/24 days #30 tabs prednisone 20 mg tablet 40 mg (2 x 20 mg) PO DAILY 5 days 09/15/24 #10 tabs Allergies Allergy/AdvReac Type Severity Reaction Status Date / Time No Known Allergies Allergy Verified 03/30/23 16:03 [facility] Disclaimer: The information contained in this section may have been updated after the patient was seen, as this information can be updated by other users. Social History Smoking Status: Current every day smoker tobacco type: cigarettes packs per day: 1 alcohol intake: never substance use type: denies use current occupational status: employed Travel in the last 8 weeks?: None household members: children housing: house current occupation: [employer] Have you lived/traveled outside [place] in past 30 days?: No Contact w/someone who lives/traveled outside [place] past 30 days?: No Exposure to someone with infectious disease in past 14 days?: No Do you have a fever (greater than 100.4 F or 38 C)?: No Have you tested positive for COVID-19?: No Exposed to someone with COVID-19 in past 14 days?: No Do you have a sore throat?: No Do you have a cough?: No Do you have any weakness?: No Do you have any diarrhea?: No Are you experiencing any unusual bleeding?: No Do you have any muscle aches/pain?: No Do you have any abdominal pain?: No Are you experiencing loss of taste or smell?: No Other Medical History Have you received the Flu Vaccine for this season: No Have you received the Pneumonia Vaccine: No ROS Obtained: Yes All systems reviewed & no additional complaints except as documented Physical Exam General General appearance: alert Head Head exam: atraumatic and normocephalic Eye Eye exam: Present normal appearance, PERRL and EOMI Neck Neck exam: Present normal inspection, full ROM and trachea midline Respiratory Respiratory exam: Absent respiratory distress, wheezes, stridor, accessory muscle use or prolonged expiratory phase Cardiovascular Cardiovascular exam: Present other (Pulses equal symmetric in upper and lower extremities) Abdominal Exam Abdominal exam: Present soft; Absent distention, tenderness or pulsatile mass Extremities Exam Extremities exam: Absent edema Neurological Exam Neurological exam: Present alert, oriented X3 and CN II-XII intact; Absent motor sensory deficit Skin Skin exam: Present warm and dry; Absent diaphoresis or erythema Medical Decision Making Medical Records Medical records reviewed: Yes I reviewed the patient's medical records. Screening: Per USPSTF and CDC recommendations, given the prevalence of disease in our region, it is our hospital?s policy to screen for HIV and viral Hepatitis for all patients aged 18 and over and those with ongoing risk factors. Frankie Inquiry Pt receiving controlled substance: No Frankie was queried for this patient: No Vital Signs: 09/15/24 16:12 Temperature 97.9 F Temperature Source Oral Pulse Rate [Left Radial] 79 Respiratory Rate 20 Blood Pressure [Right Arm] 172/92 H Blood Pressure Mean [Right Arm] 118 02 Sat by Pulse Oximetry 98 Oxygen Delivery Method Room Air Orders (Tests/Meds): ED MEDICATIONS Discontinued Medications Generic Name Dose Route Start Last Admin Trade Name Tal PRN Reason Stop Dose Admin Dexamethasone 10 mg 09/15/24 16:31 09/15/24 16:55 Dexamethasone 4mg Tablet PO 09/15/24 16:32 10 mg ONCE ONE Administration Ketorolac Tromethamine 15 mg 09/15/24 16:42 09/15/24 16:56 Ketorolac 30mg/Ml Vial IM 09/15/24 16:43 15 mg ONCE ONE Administration Ketorolac Tromethamine 15 mg 09/15/24 16:51 09/15/24 16:52 Ketorolac 30mg/Ml Vial IM 09/15/24 16:52 Not Given ONCE ONE Methocarbamol 1,500 mg 09/15/24 16:31 09/15/24 16:55 Methocarbamol 500mg Tablet PO 09/15/24 16:32 1,500 mg ONCE ONE Administration Medical Decision Narrative: 59-year-old female history of hypertension and COPD presenting with back pain. She states that couple days prior to that she started having back pain that radiates from lower back down into right buttock just above her right thigh. Has never had back pain in the past. No neurologic deficits, weakness, bowel or bladder dysfunction, urinary symptoms such as bleeding or burning. The pain is intermittent, spasming, moderately painful when flaring up, largely not painful at baseline, made worse with changes in position and twisting. Has not noticed anything that makes it better, but she is tried [id number] anti-inflammatories and lidocaine patches. Came in for further evaluation. On arrival, very clinically well, but intermittently having spasms of pain. No obvious, discernible muscle spasms in the back. She does have reproduction of pain with application of deep pressure in the right gluteus medius and minimus. Ambulatory. No midline back tenderness. Differential includes radiculopathy, radiculitis, less likely to be aortic pathology given no neurologic deficits or urinary symptoms,, nephrolithiasis for similar reasons, among others. Patient was given Toradol, Decadron, Robaxin. Observed in the emergency department for approximately 1 hour. On reevaluation, patient still having intermittent spasms, but they are less frequent. States that pain does not seem like it is all that much better, but outwardly patient is very clinically well and pleasant. Abundance of reassurance was offered. Recommend she follow-up with her family doctor for referral to physical therapy. She voiced her understanding. Close return precautions were discussed. Because patient at baseline without signs or symptoms of clinical decompensation, deemed appropriate for discharge. Results were relayed to patient who voiced understanding and were agreeable to outpatient management and follow up. I discussed my clinical impression with patient and answered all questions. At this time, the evidence for any other entities in the differential is insufficient to warrant any further testing or ED observation. This was explained as well. Advisory was given that persistent or worsening symptoms require further evaluation. I confirmed the understanding of this discussion. Academic Affairs Vice President disclaimer Much of this encounter note is an electronic disposal man spoken language to printed text. Electronic disposal man of the spoken language may permit errors. Although I have reviewed the note, some errors may still exist. Critical Care Critical Care Time Critical Care Time: No
[2024-09-15 18:00] VITALS: BP 145/75; PULSE 67; RESP 15; TEMP 36.9; O2SAT 99
== END 2024-09-15 18:00 | disposition home or self-care (01) ==
PROVIDERS: Emergency Provider Emergency Medicine; PCP Family Medicine
DX: M54.16 Radiculopathy, lumbar region (principal); F17.210 Nicotine dependence, cigarettes, uncomplicated
CPT/HCPCS: 96372; 99283; J1885; J8540